=== PATIENT | female | born 1965 | race Native Hawaiian/Other Pacific Islander ===

== ENCOUNTER 2024-05-08 10:14 | Outpatient (CLI) | payer MEDICAID, SELFPAY | END 2024-05-08 10:15 | disposition home or self-care (01) | LOC: LKVREF 10:17 | PROVIDERS: Visit Provider Family Medicine | DX: Z00.00 Encounter for general adult medical examination without abnormal findings (principal); I10 Essential (primary) hypertension; E03.9 Hypothyroidism, unspecified; E87.6 Hypokalemia | CPT/HCPCS: 80053; 80061 ==

== ENCOUNTER 2024-06-05 10:23 | Outpatient (CLI) | payer MEDICAID, SELFPAY | END 2024-06-05 10:24 | disposition home or self-care (01) | PROVIDERS: PCP Family Medicine; Visit Provider Family Medicine | DX: E03.9 Hypothyroidism, unspecified (principal); D64.9 Anemia, unspecified | CPT/HCPCS: 82607; 82728; 83540; 83550; 84443 ==

== ENCOUNTER 2024-07-19 07:05 | Outpatient (CLI) | payer MEDICAID, SELFPAY ==
--- NOTE | 2024-07-19 07:15 | CRLHL7_ITS ---
For Patients: As a result of the Century Cures Act, medical imaging exams and procedure reports are released immediately into your electronic medical record. You may view this report before your referring provider. If you have questions, please contact your health care provider. CLINICAL HISTORY: prolapse uterus TECHNIQUE: 2D chung scale and color Doppler images were acquired of the pelvis using a transvaginal approach. FINDINGS: The uterus measures 4.9 x 2.7 x 2.6 cm. No uterine fibroid. The endometrium measures 1.8 millimeters. No endometrial fluid. Posterior intramural fibroid measures 1.7 x 0.9 x 1.4 cm. The left ovary is not visualized and the right ovary measures 1.7 x 1.1 x 1.2 cm. The right ovary demonstrates normal arterial and venous blood flow on color Doppler analysis. There are no suspicious fluid collections within the cul-de-sac. IMPRESSION: Intramural uterine fibroid measures 1.7 cm. Endometrium measures 1.8 millimeters. No endometrial fluid. Dictated by Gavin Anne MD @ 07/19/2024 10:23:42 AM (Electronically Signed)
== END 2024-07-19 07:06 | disposition home or self-care (01) ==
PROVIDERS: PCP Family Medicine; Visit Provider Obstetrics & Gynecology
DX: N81.4 Uterovaginal prolapse, unspecified (principal); D25.1 Intramural leiomyoma of uterus; R93.89 Abnormal findings on diagnostic imaging of other specified body structures
CPT/HCPCS: 76830; T1013

== ENCOUNTER 2024-09-25 12:45 | Outpatient (CLI) | payer MEDICAID, SELFPAY ==
[2024-09-25 13:48] VITALS: BP 132/77
--- NOTE | 2024-09-25 14:00 | W.PM.STED ---
Stress Test Note Date Date of test: 09/25/24 Providers Primary care provider: Murray Escalona Stress test physician: Bryan Booker Stress Test Note Stress test ordered: Stress Echo Indication for test: Chest pain Results discussion: Nice 59-year-old female presents here for the above test, after discussion the risks benefits and side effects she would like to proceed, cardiac stress test medical history form is reviewed. Pretest EKG shows normal sinus rhythm, ventricular rate is 82 and blood pressure 143/90. No acute ST wave changes are noted. Standard Elezaar protocol is employed over a time course of 7 minutes, she achieved a metabolic equivalent of 8.5 Mets, with a maximum heart rate of 177, which is 128% of the maximum. Test is terminated because of fulfillment of protocol, during this test she did not develop chest pain, she did develop some leg discomfort, overall fatigue. She did not have any anginal equivalents. Review of the tracing showed no evidence of ST wave changes, suggestive of ischemia, there is some mild ST wave irregularities noted, none of them diagnostic. Impression: Negative electrographic portion of stress echo, subjectively negative Follow up suggested: Await echo images, clinical correlation with these will be needed, patient left this testing facility in good condition, I retail merchandising specialist was used, to communicate with her, as her 1st language is Maltese.
== END 2024-09-25 12:46 | disposition home or self-care (01) ==
LOC: STRESS 12:46
PROVIDERS: PCP Family Medicine; Visit Provider Family Medicine
DX: R07.9 Chest pain, unspecified (principal); R01.1 Cardiac murmur, unspecified
CPT/HCPCS: 93016; 93325; 93351; T1013

== ENCOUNTER 2024-10-10 14:44 | Inpatient (IN) | payer MEDICAID, SELFPAY ==
[2024-10-10] VITALS (33 sets, daily range): BP systolic 106–145; BP diastolic 71–86; PULSE 59–75; RESP 12–20; TEMP 35.7–37; O2SAT 89–99; BMI 34.0
[2024-10-10] MEDS: SODIUM CHLORIDE 0.9 % (FLUSH) 10 ML SYRINGE IVF (06:57)
[2024-10-10] MEDS: LACTATED RINGERS 1000 ML 1,000 ML 100 ML IV (06:57)
--- NOTE | 2024-10-10 07:12 | W.PM.H&PU ---
History & Physical Update History & Physical Update H&P Reviewed and patient assessed: No changes noted
[2024-10-10 07:33] LABS: Creatinine* 0.6 mg/dL (0.5-1.5); Est. Creatinine Clearance* 118.56; Estimated Glomerular Filt Rate 104 ml/min
[2024-10-10] MEDS: CEFAZOLIN 2 GM INJ IVP (07:41)
[2024-10-10] MEDS: VASOPRESSIN 20 UNIT/ML INJ INJECTION (07:57)
[2024-10-10] MEDS: 0.9 % SODIUM CHLORIDE 50 ml INJECTION (07:57)
[2024-10-10] MEDS: LIDOCAINE 1%-EPI 1:100,000 20 ML INFILTRATI (08:31)
--- NOTE | 2024-10-10 09:24 | P.NB_ITS ---
Nerve Block Nerve Block Time Seen by Provider: 08:38 Date Seen: 10/10/24 Type of block requested by surgeon for post-operative analgesia: TAP Side: bilateral Time out performed: Yes Verification of patient name: Yes Verification of date of : Yes Site marking: site marked Name of person performing procedure: Rock Continuous monitoring Was continuous monitoring of O2 sat, B/P, quality assurance monitor body, recorded every 15 minutes?: Yes Procedure Checklist: sterile prep, needles and gloves Ultrasound guided. Images saved: Yes Medications given in 5ml increments after negative aspiration: Marcaine %: 0.25 mL: 30 Needle gauge: 20 and Exparel mL: 10 Patient tolerated procedure well: Yes Additional comments: Needle noted between internal oblique and transversus abdominus. Local spread visualized Block Charges Block Charge (with Pro Fee): TAP Bilateral Use of Ultrasound Machine for Block: Yes- US Guidance/pain block
--- NOTE | 2024-10-10 09:24 | W.ANESCHARGE ---
Anesthesia Charges Start Date/Time Anesthesia Start Date: 10/10/24 Anesthesia Start Time: 07:27 Stop Date/Time Anesthesia Stop Date: 10/10/24 Anesthesia Stop Time: 12:36
[2024-10-10] MEDS: LACTATED RINGERS 500 ML 500 ML 100 ML IV ×2 (10:30→13:09)
--- NOTE | 2024-10-10 11:12 | P.GSOP_ITS ---
Operative Note Date of procedure: 10/10/24 Pre-op diagnosis: Pelvic organ prolapse Post-op diagnosis: Same Type of Procedure: 1. Lysis of adhesion 2. Proctoscopy examination Indications: Patient was in the operating room. She had a vaginal hysterectomy converted to and open laparotomy for intra-abdominal adhesions. I was asked for an int raoperative consultation and assistance with taking down those adhesions. Please see Dr. Hernandes and Dr. Patel's notes for further discussion regarding risks, benefits and operative indication. Procedure Description: Patient was intubated and in lithotomy position. The procedure had been converted to an open abdominal hysterectomy. A Pfannenstiel incision had been made and dissection was being performed in the patient's pelvis. On examination the posterior and right lateral wall portion of the vaginal cuff was partially transected. The left fallopian tube and ovary were densely adherent to the left lateral wall. Using careful dissection with electrocautery and tying off vessels when identified we dissected free the ovary and tube from the lateral wall. The vascular supply to the ovary was identified and doubly ligated with Vicryl ties before transection. During this portion of the procedure the ureter was not identified within the operative field. Attention was then directed to the posterior vaginal cuff. Adhesions to the sigmoid colon were ligated with electrocautery, taking care not to injure the underlying sigmoid. Dr. Hernandes and Dr. Patel then proceeded to dissect free the remainder of the attachments on the uterus and transect the remainder of the vaginal cuff. The specimen was then passed off to be sent for pathology. Please see their note for description regarding repair of the vaginal cuff. The pelvis was then irrigated with saline. Hemostasis was excellent at this point in the case. The sigmoid was visualized and well away from the operative field with no areas of injury identified. I then proceeded with a proctoscopy examination. The rectum was gently inflated, there was some liquid stool but no evidence of blood within the rectal canal. Dr. Hernandes then occluded the proximal portion of the sigmoid while I inflated the colon through the proctoscope. There were no bubbles and no leak identified. I then scrubbed out of the case allow them to finish the remainder of the procedure. Findings: Adhesions of the sigmoid to the posterior vaginal cuff. Anesthesia: GETA Surgeon: Mallory Landers MD Estimated blood loss (mL): 0 Condition: stable Disposition: no change
--- NOTE | 2024-10-10 12:37 | P.GYNPRC_ITS ---
Procedure Note Date of procedure: 10/10/24 Will [facility] bill your pro fee for this procedure?: Yes Pre-op diagnosis: Pelvic organ prolapse Post-op diagnosis: Pelvic organ prolapse, extensive pelvic adhesions Procedure: Failed vaginal hysterectomy, total abdominal hysterectomy,left salpingo- oophorectomy, right salpingectomy, extensive lysis of adhesions, intraoperative consult to general surgery, anterior vaginal repair, cystoscopy Anesthesia: regional (Converted to GETA) Complications: Failed vaginal hysterectomy, need to open abdomen to complete surgery Surgeon: Ritchie Espana MD Steamship Agent: Briseyda Patel Estimated blood loss (mL): 150 IV fluids (mL): 1,500 Urine Output (mL): 175 Pathology: specimen obtained, sent to pathology (Uterus with left fallopian tube and ovary, right fallopian tube) Condition: stable Disposition: floor Findings: Normal external genitalia, anterior vaginal wall prolapse grade 3, posterior vaginal wall prolapse grade 2, multiparous cervix. No gross cervical lesions. Bimanual exam: Non contributory. Intra abdominal survey: Uterus small of about 5cm, evidence of anterior colpotomy, sigmoid epiploica adhesions to the posterior cul de sac, left pelvic side wall, left utero sacral ligament. Left fallopian tube and ovary adhered to the left round ligament and posterior left fundus uterus. Right fallopian tube adhesions to the right round/broad ligament. Right ovary not definitively visualized, but believed to be adherent to the right round ligament and fallopian tube. Cystoscopy: No foreign objects, intact mucosa, bilateral ureteral jet streams seen. Appendix normal. Procedure Description: The patient was seen at the preop area. Informed consent was reviewed and signed. The patient was taken to the OR with IV fluid running and pneumatic compression stockings were applied to the lower extremities. Spinal anesthesia was obtained without difficulty. The patient was placed in the dorsal lithotomy position with Desmond type stirrups. Buttock was positioned slightly over the edge the table. The patient was prepped and draped in normal sterile fashion. Examination under anesthesia revealed the findings as above. Landa catheter was inserted in the bladder was emptied. A weighted speculum was placed into the vagina. The anterior and posterior lip of the cervix grasped with a double Brook forceps. With outward traction applied to the cervix, diluted Vasopressin was injected circumferentially into the cervicovaginal junction for hydrodissection purposes. Afterwards a circumferential incision was made with the scalpel at the cervical vaginal junction. Incision was carried down to the para cervical fascia, allowing the cervix to separate from the vagina mucosa. Minimal bleeding encountered. Separation of the anterior vaginal mucosa from uterus performed bluntly with moist gauze and performed until peritoneal reflection identified, this was picked up and entered sharply with England scissors. A right angle retractor was inserted into the vesicouterine space. Attention was then placed to the posterior vagina, where blunt dissection also utilized until identification of the posterior peritoneum, this was grasped with pickups and entered sharply with England scissors with the tip pointing to the uterus. A thin peritoneal layer was still palpated and complete access to the posterior cul de sac was unable to be obtained. Palpation of the fundus through the anterior colpotomy was highly suspicious for posterior cul de sac adhesions and decision was made to culminate attempts to vaginal approach and proceed with abdominal hysterectomy. Anesthesia was able to achieve GETA w/o difficulty. Entire set up was changed, and patient was re prepped vaginally and abdominally for abdominal approach.A new Landa catheter was placed. A procto sizer was placed vaginally to help identify previous attempts at posterior colpotomy. A Pfannenstiel skin incision was made with a scalpel. This incision was carried down to the underlying layer of fascia with the scalpel and Bovie. The fascia was incised in the midline and the incision extended laterally. The superior and inferior aspects of the fascial incision were grasped with Aurelio clamps and the underlying rectus muscles dissected off sharply. The rectus muscles were in the midline. The underlying peritoneum was identified and entered bluntly. The peritoneal incision was extended superiorly and inferiorly with good visualization of the bladder. The patient was placed in some mild Trendelenburg positioning. The bowels were packed cephalad using a large moistened laparotomy sponge. The Ken O retractor was placed in the incision. This provided excellent visualization of the pelvis. The pelvis was inspected with the findings noted above. Natan clamps were placed at the cornua bilaterally for traction. Bilateral round ligaments easily identified. Starting on the left side the left roud ligament was grasped with [place] and suture ligated with 0 Vicryl. The anterior leaf of the broad ligament was opened to the midline to meet the anterior colpotomy. Posterior leaf of the left round ligament with adhesions to a structure highly suspected to be the left fallopian tube and ovary. Multiple sigmoid epiploica adhesions noted to the left infundibulopelvic ligament, careful blunt and sharp dissection completed but assistance from general surgery was required eventually, intraoperative consult made-please see Dr. Landers's note for complete details. In the meantime attention was turned to the right side and the right roud ligament was grasped with Ambrosio and suture ligated with 0 Vicryl. The anterior leaf of the broad ligament was opened to the midline to meet the anterior colpotomy. Posterior leaf of the left round ligament with adhesions to the left fallopian tube and possibly right ovary. Adhesions were mobilized with blunt and sharp dissection until identification of the fimbrial end of the right fallopian tube. The right ovarian ligament was then isolated, clamped across with 2 Lety clamps, transected, and doubly suture ligated with 0 Vicryl. Hemostasis was observed. The uterine vessels were skeletonized on the right side. The vessels were clamped across with a Lety and a straight clamp, transected, and suture ligated. Excellent hemostasis was obtained. Attention was then again placed of the left side and with careful dissection the left IP ligament was isolated, clamped, cut and suture ligated with 0 Vicryl. Hemostasis secured.The left ovarian ligament was clamped with 2 Lety clamps, transected, and doubly suture ligated with 0 Vicryl. Hemostasis was visualized. The left uterine vessels were skeletonized and then clamped across with Lety clamps, transected, and suture ligated. Excellent hemostasis was obtained. The remaining cardinal and uterosacral ligament attachments on both sides were clamped with straight Lety clamps adjacent to the lower uterine segment and cervix, transected and suture ligated with 0 Vicryl. Excellent hemostasis was obtained. Two Lety clamps were placed across the vaginal cuff angles. The uterus with attached cervix was then transected and passed off the field. The vaginal cuff angles were fixed with Lety stitches of 0 Vicryl. The intervening vaginal cuff was closed with [id number] sutures of 0 Vicryl. The right fallopian tube was elevated with [place] clamps. Lety clamps were placed across the tubal attachments, which were then transected and suture ligated with 0 Vicryl. Warm saline irrigated in the pelvis to evaluate for hemostasis, and this was completed twice. Small bleeding vessels were isolated with DeBakey clamps and cauterized for hemostasis. Hemostasis secured. General surgery then completed proctoscopy, please see intraoperative consult notes for complete details. All laparotomy sponges and instruments were then removed. Peritoneum was approximated with Vicryl 3-0 in a continuous fashion. The subfascial tissues were carefully inspected and hemostasis assured. The fascia was reapproximated in a running fashion with a looped 0 PDS suture. The subcutaneous tissues were copiously irrigated and hemostasis assured. The subcutaneous adipose layer was reapproximated with interrupted sutures of 3-0 plain gut. The skin was closed in a subcuticular fashion with 4-0 Monocryl. LiquiBand applied. Attention was then placed to the anterior vagina. Allis camps were placed along the midline of the anterior vaginal wall and dilute Vasopressin solution injected along the anterior vaginal wall. A vertical midline incision was then made and the vaginal epithelium was dissected from the underlying tissue using Metzenbaum scissors. Plication of the underlying vaginal muscularis and adventitia was performed using a running Vicryl 2-0 suture. Redundant vaginal mucosa was trimmed, and the vaginal incision was closed with Vicryl 2-0. Cystoscopy was then completed revealing no damage to the bladder mucosa and bilateral ureteral jets. The patient was given sodium fluorescein for better visualization of ureteral jets in cystoscopies to follow. The cystoscope was removed. The Landa catheter was replaced. The patient tolerated the procedure well. Sponge, lap, needle, instrument counts were reported as correct x2. The patient was taken to recovery room awake and in stable condition. She received 2 g of IV Ancef preoperatively and a second dose was given at the 4 hour marty. 1g of IV TXA also given intraoperatively due to concerns for multiple small bleeding vessels. The uterus was weighed at the conclusion of the procedure, weight was 41g.
--- NOTE | 2024-10-10 12:51 | W.ANESCHARGE ---
Anesthesia Charges Start Date/Time Anesthesia Start Date: 10/10/24 Anesthesia Start Time: 07:27 Stop Date/Time Anesthesia Stop Date: 10/10/24 Anesthesia Stop Time: 12:36
[2024-10-10] MEDS: HYDROmorphone 0.5 mg/0.5 ml inj IVP (12:59)
[2024-10-10] MEDS: LACTATED RINGERS 1000 ML 1,000 ML 125 ML IV ×2 (13:55→20:58)
--- NOTE | 2024-10-10 15:46 | P.IMCN_ITS ---
Date of Consult Consult date: 10/10/24 Primary Care Provider: Murray Escalona MD Consult Narrative Narrative: Sharon Lawson is a 59 year old female who underwent an elective gynecologic procedure today by Dr. Morin. The planned total vaginal hysterectomy converted to open. I do not have further details at this time about the procedure. I have been asked to consult on this patient who has a history of hypertension, hypothyroidism, and negative stress echocardiogram done for chest pain. I spoke with Sharon via maintainer central office. She tells me that she is feeling well and has no pain at present. She and I discussed her medications and she confirmed which she is taking and when. She expressed some thirst for which I gave her some ice chips that were at the bedside. She had no other concerns or complaints. Review of Systems Status of ROS: Reports: 6 or more systems reviewed and unremarkable except as noted in History and below [facility] Medical History (Updated 10/10/24 @ 16:07 by Ninfa Valera MD) History of diverticulitis ?Z87.19 - Personal history of other diseases of the digestive system (ICD-10) Hx of ovarian cyst ?Z87.42 - Personal history of other diseases of the female genital tract (ICD-10) Eczema ?L30.9 - Dermatitis, unspecified (ICD-10) Chest pain ?R07.9 - Chest pain, unspecified (ICD-10) Lichen sclerosus et atrophicus of the vulva ?N90.4 - Leukoplakia of vulva (ICD-10) Murmur, cardiac ?R01.1 - Cardiac murmur, unspecified (ICD-10) Seasonal allergies ?J30.2 - Other seasonal allergic rhinitis (ICD-10) GERD (gastroesophageal reflux disease) ?K21.9 - Gastro-esophageal reflux disease without esophagitis (ICD-10) Breast cancer in female ?C50.919 - Malignant neoplasm of unspecified site of unspecified female breast (ICD-10) HTN (hypertension) ?I10 - Essential (primary) hypertension (ICD-10) Hypothyroidism ?E03.9 - Hypothyroidism, unspecified (ICD-10) Surgical History (Updated 10/10/24 @ 16:01 by Ninfa Valera MD) History of partial colectomy ?Z90.49 - Acquired absence of other specified parts of digestive tract (ICD- 10) S/P removal of left ovary ?Z90.721 - Acquired absence of ovaries, unilateral (ICD-10) History of cholecystectomy ?Z90.49 - Acquired absence of other specified parts of digestive tract (ICD- 10) Cyst of left breast ?N60.02 - Solitary cyst of left breast (ICD-10) History of removal of ovarian cyst ?Z98.890 - Other specified postprocedural states (ICD-10) ?Z87.42 - Personal history of other diseases of the female genital tract (ICD-10) Family History (Updated 05/29/24 @ 13:41 by Pat Page) Father Myocardial infarction Uncle Prostate cancer Mother Hepatitis Aunt Lung cancer, Onset Age: 32 Social History (Updated 10/10/24 @ 16:02 by Ninfa Valera MD) Narrative: Homemaker. Has a daughter and a grandchild. She denies EtOH or smoking. What is your current living situation?: I presently have a place to live In the past 12 months, utilities in danger of being shut off: no In the past 12 mos, have been you worried that your food would run out before you had money to buy more?: never true In the past 12 mos, the food you bought just didn't last and you didn't have money to buy more?: never true Smoking Status: Never smoker How often do you have a drink containing alcohol: never AUDIT-C Alcohol total score: 0 Non-prescribed substance use: denies use Caffeine: Yes (1 c/day coffee) How often does anyone, including family, friends and others, physically hurt you : never How often does anyone, including family, friends and others, insult or talk down to you: never How often does anyone, including family, friends and others, threaten you with harm: never How often does anyone, including family, friends and others, scream or curse at you: never service: No Meds Home Medications and Allergies Home Medications ?Medication ?Instructions ?Recorded ?Confirmed ?Type amlodipine 10 mg tablet 10 mg PO HS 10/10/24 10/10/24 History cetirizine 10 mg tablet (Zyrtec) 10 mg PO HS PRN allergy symptoms 10/10/24 10/10/24 History fluticasone furoate 27.5 2 spray intranasal DAILY 10/10/24 10/10/24 History mcg/actuation nasal spray,suspension (Flonase Sensimist) hydrochlorothiazide 25 mg tablet 25 mg PO HS 10/10/24 10/10/24 History montelukast 10 mg tablet 10 mg PO HS 10/10/24 10/10/24 History (Singulair) omeprazole 20 mg capsule,delayed 20 mg PO HS 10/10/24 10/10/24 History release triamcinolone acetonide 0.1 % 1 applic topical BID PRN 10/10/24 10/10/24 History topical cream Allergies Allergy/AdvReac Type Severity Reaction Status Date / Time No Known Drug Allergies Allergy Verified 10/10/24 06:58 Exam Narrative: Exam Narrative: General: [No acute distress.] [Awake alert oriented x3.] HEENT: [Normocephalic atraumatic], [pupils equally round and reactive to light and accommodation]. Oropharynx [clear]. Mucous membranes are [moist]. Poor dentition. [No cervical lymphadenopathy, thyromegaly or carotid bruits]. No JVD. Cardiovascular: [Regular rate and rhythm]. [No murmurs, gallops, or rubs]. Chest: No increased work of breathing. [Clear to auscultation bilaterally. No crackles or wheezes]. Abdomen: Bowel sounds hypoactive. Postop abdomen with anterior suprapubic incision that is clean, dry, intact and without erythema or induration. [No hepatosplenomegaly or masses]. Extremities: [No] edema, [no cyanosis or clubbing]. Skin: [No jaundice,] [no pallor,] [no rashes on visible skin]. Const: Vital Signs, click to edit/add: Vital Signs - 24 hr 10/10/24 06:53 10/10/24 12:33 10/10/24 12:35 Temperature 97.3 F L 98.6 F Pulse Rate 75 75 74 Respiratory Rate 16 16 16 Blood Pressure 145/86 H 121/78 115/74 Pulse Oximetry 95 97 97 Oxygen Delivery Me thod Room Air Nasal Cannula Nasal Cannula Oxygen Flow Rate 2 2 10/10/24 12:40 10/10/24 12:45 10/10/24 12:50 Temperature Pulse Rate 71 70 70 Respiratory Rate 16 16 16 Blood Pressure 121/74 112/75 108/72 Pulse Oximetry 98 98 98 Oxygen Delivery Me thod Nasal Cannula Nasal Cannula Nasal Cannula Oxygen Flow Rate 2 2 2 10/10/24 12:55 10/10/24 13:01 10/10/24 13:05 Temperature 97.6 F Pulse Rate 67 73 71 Respiratory Rate 16 16 16 Blood Pressure 112/73 106/71 112/75 Pulse Oximetry 98 97 89 Oxygen Delivery Me thod Nasal Cannula Nasal Cannula Room Air Oxygen Flow Rate 2 2 0 10/10/24 13:10 10/10/24 13:15 10/10/24 13:27 Temperature 96.3 F L Pulse Rate 64 64 67 Respiratory Rate 16 16 12 Blood Pressure 114/75 115/77 113/73 Pulse Oximetry 98 98 98 Oxygen Delivery Me thod Nasal Cannula Nasal Cannula Nasal Cannula Oxygen Flow Rate 2 2 2 10/10/24 13:45 10/10/24 14:30 Temperature Pulse Rate Respiratory Rate 12 14 Blood Pressure Pulse Oximetry Oxygen Delivery Me thod Oxygen Flow Rate Labs Labs: Short CBC 10/10/24 Range/Units 07:03 Hgb 12.0 (12.0-16.0) gm/dL BMP 10/10/24 07:03 Creatinine 0.6 Assessment and Plan Assessment and plan (1) Prolapse of female pelvic organs: Problem comment: - underwent gynecologic procedure today, total open hysterectomy - routine cares Status: Chronic (2) Abnormal uterine bleeding: Status: Chronic (3) Hypothyroidism: Problem comment: - Continue levothyroxine Status: Chronic (4) HTN (hypertension): Problem comment: - continue hydrochlorothiazide with hold parameters, blood pressure is currently 110/72. Will hold amlodipine to allow for a slightly higher blood pressure overnight. Status: Chronic (5) GERD (gastroesophageal reflux disease): Problem comment: - continue omeprazole Status: Chronic Plan - appreciate the consult - VTE prophylaxis with SCDs and ambulation.
[2024-10-10 17:02] LABS: Hemoglobin* 11.3 gm/dL (12.0-16.0)
[2024-10-10 17:27] LABS: Creatinine* 0.6 mg/dL (0.5-1.5); Est. Creatinine Clearance* 118.56; Estimated Glomerular Filt Rate 104 ml/min
--- NOTE | 2024-10-10 17:47 | PC.NURSE ---
Shift Summary: Patient pleasant and cooperative. has not yet gotten out of bed. Landa patent with bright yellow urine due to dye. Vitals stable and WNL. Abdominal incision open to air, appears clean and dry. Patient denies pain. Had oatmeal for dinner, denies any nausea. Patient uses bilingual interpreter for medical updates/instructions, able to understand some lao and answers appropriately, family at bedside and assists as well for verbalizing needs and meal orders. Denies nausea. Maintaining o2 sats >90% on RA, RR 12-16.
[2024-10-10] MEDS: KETOROLAC 30 MG/ML inj IVP (18:16)
[2024-10-10] MEDS: MONTELUKAST 10 MG TABLET PO (20:56)
[2024-10-10] MEDS: OMEPRAZOLE 20 MG CAPSULE DR PO (20:57)
[2024-10-11] VITALS (12 sets, daily range): BP systolic 99–128; BP diastolic 64–77; PULSE 73–81; RESP 14–18; TEMP 36.4–37.2; O2SAT 95–98
[2024-10-11] MEDS: KETOROLAC 30 MG/ML inj IVP ×3 (00:32→13:33)
--- NOTE | 2024-10-11 07:18 | PC.NURSE ---
Pt alert, oriented and vitally stable. Pain rated 0-2/10 throughout shift, tolerated with scheduled medications. Landa patent and draining effectively. Pt remained in bed throughout shift. Call light within reach.
[2024-10-11 07:28] LABS: Hemoglobin* 9.8 gm/dL (12.0-16.0)
[2024-10-11 07:44] LABS: Creatinine* 0.6 mg/dL (0.5-1.5); Est. Creatinine Clearance* 118.56; Estimated Glomerular Filt Rate 104 ml/min
[2024-10-11] MEDS: hydroCHLOROthiazide 25 MG TABLET PO (08:46)
[2024-10-11] MEDS: AMLODIPINE 10 MG TABLET PO (08:46)
[2024-10-11] MEDS: LEVOTHYROXINE 125 MCG TABLET PO (08:46)
[2024-10-11] MEDS: OMEPRAZOLE 20 MG CAPSULE DR PO (08:46)
[2024-10-11] MEDS: ACETAMINOPHEN 325 MG TABLET 1000 MG PO (08:54)
--- NOTE | 2024-10-11 10:21 | PM.IMPN1 ---
Progress Note: A&P Assessment and plan (1) Prolapse of female pelvic organs: Problem details: - underwent gynecologic procedure today, total open hysterectomy - routine cares Status: Chronic (2) Hypothyroidism: Problem details: - Continue levothyroxine Status: Chronic (3) HTN (hypertension): Problem details: - slightly lower postoperative numbers, asymptomatic - continue HCTZ with hold parameters, blood pressure is currently 110/72 - takes amlodipine at at bedtime restarting 10/11 with hold parameters Status: Chronic (4) GERD (gastroesophageal reflux disease): Problem details: - continue omeprazole Status: Chronic Plan - continue postoperative management per industrial technology education teacher team - continue home medications for above mentioned comorbidities Subjective Date Seen: 10/11/24 Interval history: Sharon was admitted to the hospital yesterday for a hysterectomy 2/2 pelvic organ prolapse. Formal postoperative diagnosis per Dr. Espana: Failed vaginal hysterectomy, total abdominal hysterectomy,left salpingo-oophorectomy, right salpingectomy, extensive lysis of adhesions, intraoperative consult to general surgery, anterior vaginal repair, cystoscopy. Dr. Landers of General Surgery was consulted intraoperatively for lysis of adhesions and proctoscopy. No operative or anesthetic complications noted. Hospitalist team consulted given comorbidities of Essential HTN, GERD, Hypothyroidism. Takes HCTZ in the morning, Amlodipine at night. Held Amlodipine overnight given lower BPs, has holding parameters on HCTZ. SBP has been 103-128 postoperatively without dizziness or lightheadedness. No chest pain or dyspnea. Noted to have intermittent chest pain in August with reassuring stress test at that time. Dr. Escalona is PCP. No concerns for hospitalist team this morning. Exam Narrative: Exam Narrative: GEN: Alert and oriented, nontoxic and sitting in bed HEENT: EOMIs bilaterally, no scleral icterus, mild conjunctival pallor CV: RRR, + systolic murmur without radiation or concerning features R: LCTA bilaterally without concerning wheezing Ab: No concerning tenderness, incision not formally examined Ext: wwp, no concerning edema Skin: No concerning skin lesions or rashes on exposed skin Neuro: Nonfocal Psych: Appropriate Const: Vital Signs, click to edit/add: Vital Signs - 24 hr 10/10/24 12:33 10/10/24 12:35 10/10/24 12:40 Temperature 98.6 F Pulse Rate 75 74 71 Pulse Rate [Pulse Oximeter] Respiratory Rate 16 16 16 Blood Pressure 121/78 115/74 121/74 Blood Pressure [Ri ght Arm] Pulse Oximetry 97 97 98 Oxygen Delivery Me thod Nasal Cannula Nasal Cannula Nasal Cannula Oxygen Flow Rate 2 2 2 10/10/24 12:45 10/10/24 12:50 10/10/24 12:55 Temperature Pulse Rate 70 70 67 Pulse Rate [Pulse Oximeter] Respiratory Rate 16 16 16 Blood Pressure 112/75 108/72 112/73 Blood Pressure [Ri ght Arm] Pulse Oximetry 98 98 98 Oxygen Delivery Me thod Nasal Cannula Nasal Cannula Nasal Cannula Oxygen Flow Rate 2 2 2 10/10/24 13:01 10/10/24 13:05 10/10/24 13:10 Temperature 97.6 F Pulse Rate 73 71 64 Pulse Rate [Pulse Oximeter] Respiratory Rate 16 16 16 Blood Pressure 106/71 112/75 114/75 Blood Pressure [Ri ght Arm] Pulse Oximetry 97 89 98 Oxygen Delivery Me thod Nasal Cannula Room Air Nasal Cannula Oxygen Flow Rate 2 0 2 10/10/24 13:15 10/10/24 13:27 10/10/24 13:30 Temperature 96.3 F L 96.3 F L Pulse Rate 64 67 64 Pulse Rate [Pulse Oximeter] Respiratory Rate 16 12 12 Blood Pressure 115/77 113/73 112/73 Blood Pressure [Ri ght Arm] Pulse Oximetry 98 98 98 Oxygen Delivery Me thod Nasal Cannula Nasal Cannula Nasal Cannula Oxygen Flow Rate 2 2 2 10/10/24 13:45 10/10/24 13:45 10/10/24 14:00 Temperature 96.5 F L 96.5 F L Pulse Rate 63 64 Pulse Rate [Pulse Oximeter] Respiratory Rate 12 12 12 Blood Pressure 114/72 115/72 Blood Pressure [Ri ght Arm] Pulse Oximetry 96 98 Oxygen Delivery Me thod Nasal Cannula Nasal Cannula Oxygen Flow Rate 1 1 10/10/24 14:15 10/10/24 14:30 10/10/24 14:45 Temperature 96.2 F L 96.2 F L Pulse Rate 60 59 L Pulse Rate [Pulse Oximeter] Respiratory Rate 14 14 14 Blood Pressure 111/76 117/71 Blood Pressure [Ri ght Arm] Pulse Oximetry 98 98 Oxygen Delivery Me thod Nasal Cannula Nasal Cannula Oxygen Flow Rate 0.5 0.5 10/10/24 15:00 10/10/24 15:15 10/10/24 15:30 Temperature 96.2 F L Pulse Rate 66 Pulse Rate [Pulse Oximeter] Respiratory Rate 14 14 14 Blood Pressure 110/72 Blood Pressure [Ri ght Arm] Pulse Oximetry 98 Oxygen Delivery Me thod Room Air Oxygen Flow Rate 10/10/24 16:15 10/10/24 16:30 10/10/24 17:00 Temperature 96.7 F L 96.5 F L Pulse Rate 60 60 Pulse Rate [Pulse Oximeter] Respiratory Rate 16 16 14 Blood Pressure 128/80 122/80 Blood Pressure [Ri ght Arm] Pulse Oximetry 99 96 Oxygen Delivery Me thod Room Air Room Air Oxygen Flow Rate 10/10/24 17:30 10/10/24 18:22 10/10/24 18:24 Temperature 96.6 F L Pulse Rate 65 Pulse Rate [Pulse Oximeter] Respiratory Rate 14 14 14 Blood Pressure 122/76 Blood Pressure [Ri ght Arm] Pulse Oximetry 99 Oxygen Delivery Me thod Room Air Oxygen Flow Rate 10/10/24 19:00 10/10/24 19:30 10/10/24 20:30 Temperature 97.5 F L Pulse Rate Pulse Rate [Pulse Oximeter] 68 Respiratory Rate 16 16 20 Blood Pressure Blood Pressure [Ri ght Arm] 123/80 Pulse Oximetry 98 Oxygen Delivery Me thod Room Air Oxygen Flow Rate 10/10/24 22:30 10/10/24 23:00 10/10/24 23:00 Temperature 98.1 F Pulse Rate Pulse Rate [Pulse Oximeter] 68 68 Respiratory Rate 18 18 18 Blood Pressure Blood Pressure [Ri ght Arm] 111/71 Pulse Oximetry 97 Oxygen Delivery Me thod Room Air Oxygen Flow Rate 10/10/24 23:30 10/11/24 00:30 10/11/24 01:30 Temperature Pulse Rate Pulse Rate [Pulse Oximeter] Respiratory Rate 18 18 18 Blood Pressure Blood Pressure [Ri ght Arm] Pulse Oximetry Oxygen Delivery Me thod Oxygen Flow Rate 10/11/24 02:30 10/11/24 03:00 10/11/24 03:30 Temperature 98.9 F Pulse Rate Pulse Rate [Pulse Oximeter] 79 Respiratory Rate 16 18 18 Blood Pressure Blood Pressure [Ri ght Arm] 103/68 Pulse Oximetry 96 Oxygen Delivery Me thod Room Air Oxygen Flow Rate 10/11/24 04:30 10/11/24 05:30 10/11/24 06:13 Temperature Pulse Rate Pulse Rate [Pulse Oximeter] Respiratory Rate 18 16 18 Blood Pressure Blood Pressure [[facility] Arm] Pulse Oximetry Oxygen Delivery Me thod Oxygen Flow Rate 10/11/24 07:20 10/11/24 07:20 10/11/24 08:40 Temperature 97.7 F Pulse Rate Pulse Rate [Pulse Oximeter] 73 Respiratory Rate 16 16 Blood Pressure Blood Pressure [[facility] Arm] 113/66 128/77 Pulse Oximetry 96 Oxygen Delivery Me thod Room Air Oxygen Flow Rate Labs Labs: Laboratory Results - last 24 hr 10/10/24 10/11/24 16:51 06:05 Hgb 11.3 L 9.8 L Creatinine 0.6 0.6 Estimated Creat Clear 118.56 118.56 Estimated GFR 104 104
--- NOTE | 2024-10-11 10:34 | P.GSPN_ITS ---
Subjective Subjective Date Seen: 10/11/24 Interval history: Patient Was interviewed with a motorcycle riding instructor. She states that she is doing well this morning. She denies any abdominal pain. She had some breakfast, and reports a good appetite. Denies any nausea. Has not yet been passing gas, but has been burping. Exam Narrative: Exam Narrative: General: Alert and oriented, no acute distress Respiratory: Equal breath rise bilaterally, maintained on room air CV: Well perfused Abdomen: Soft, nontender nondistended. Lower Pfannenstiel incision with Dermabond in place clean/dry/intact. No concern for infection. Const: Vital Signs, click to edit/add: Vital Signs - 24 hr 10/10/24 12:33 10/10/24 12:35 10/10/24 12:40 Temperature 98.6 F Pulse Rate 75 74 71 Pulse Rate [Pulse Oximeter] Respiratory Rate 16 16 16 Blood Pressure 121/78 115/74 121/74 Blood Pressure [Ri ght Arm] Pulse Oximetry 97 97 98 Oxygen Delivery Me thod Nasal Cannula Nasal Cannula Nasal Cannula Oxygen Flow Rate 2 2 2 10/10/24 12:45 10/10/24 12:50 10/10/24 12:55 Temperature Pulse Rate 70 70 67 Pulse Rate [Pulse Oximeter] Respiratory Rate 16 16 16 Blood Pressure 112/75 108/72 112/73 Blood Pressure [Ri ght Arm] Pulse Oximetry 98 98 98 Oxygen Delivery Me thod Nasal Cannula Nasal Cannula Nasal Cannula Oxygen Flow Rate 2 2 2 10/10/24 13:01 10/10/24 13:05 10/10/24 13:10 Temperature 97.6 F Pulse Rate 73 71 64 Pulse Rate [Pulse Oximeter] Respiratory Rate 16 16 16 Blood Pressure 106/71 112/75 114/75 Blood Pressure [Ri ght Arm] Pulse Oximetry 97 89 98 Oxygen Delivery Me thod Nasal Cannula Room Air Nasal Cannula Oxygen Flow Rate 2 0 2 10/10/24 13:15 10/10/24 13:27 10/10/24 13:30 Temperature 96.3 F L 96.3 F L Pulse Rate 64 67 64 Pulse Rate [Pulse Oximeter] Respiratory Rate 16 12 12 Blood Pressure 115/77 113/73 112/73 Blood Pressure [Ri ght Arm] Pulse Oximetry 98 98 98 Oxygen Delivery Me thod Nasal Cannula Nasal Cannula Nasal Cannula Oxygen Flow Rate 2 2 2 10/10/24 13:45 10/10/24 13:45 10/10/24 14:00 Temperature 96.5 F L 96.5 F L Pulse Rate 63 64 Pulse Rate [Pulse Oximeter] Respiratory Rate 12 12 12 Blood Pressure 114/72 115/72 Blood Pressure [Ri ght Arm] Pulse Oximetry 96 98 Oxygen Delivery Me thod Nasal Cannula Nasal Cannula Oxygen Flow Rate 1 1 10/10/24 14:15 10/10/24 14:30 10/10/24 14:45 Temperature 96.2 F L 96.2 F L Pulse Rate 60 59 L Pulse Rate [Pulse Oximeter] Respiratory Rate 14 14 14 Blood Pressure 111/76 117/71 Blood Pressure [Ri ght Arm] Pulse Oximetry 98 98 Oxygen Delivery Me thod Nasal Cannula Nasal Cannula Oxygen Flow Rate 0.5 0.5 10/10/24 15:00 10/10/24 15:15 10/10/24 15:30 Temperature 96.2 F L Pulse Rate 66 Pulse Rate [Pulse Oximeter] Respiratory Rate 14 14 14 Blood Pressure 110/72 Blood Pressure [Ri ght Arm] Pulse Oximetry 98 Oxygen Delivery Me thod Room Air Oxygen Flow Rate 10/10/24 16:15 10/10/24 16:30 10/10/24 17:00 Temperature 96.7 F L 96.5 F L Pulse Rate 60 60 Pulse Rate [Pulse Oximeter] Respiratory Rate 16 16 14 Blood Pressure 128/80 122/80 Blood Pressure [Ri ght Arm] Pulse Oximetry 99 96 Oxygen Delivery Me thod Room Air Room Air Oxygen Flow Rate 10/10/24 17:30 10/10/24 18:22 10/10/24 18:24 Temperature 96.6 F L Pulse Rate 65 Pulse Rate [Pulse Oximeter] Respiratory Rate 14 14 14 Blood Pressure 122/76 Blood Pressure [Ri ght Arm] Pulse Oximetry 99 Oxygen Delivery Me thod Room Air Oxygen Flow Rate 10/10/24 19:00 10/10/24 19:30 10/10/24 20:30 Temperature 97.5 F L Pulse Rate Pulse Rate [Pulse Oximeter] 68 Respiratory Rate 16 16 20 Blood Pressure Blood Pressure [Ri ght Arm] 123/80 Pulse Oximetry 98 Oxygen Delivery Me thod Room Air Oxygen Flow Rate 10/10/24 22:30 10/10/24 23:00 10/10/24 23:00 Temperature 98.1 F Pulse Rate Pulse Rate [Pulse Oximeter] 68 68 Respiratory Rate 18 18 18 Blood Pressure Blood Pressure [Ri ght Arm] 111/71 Pulse Oximetry 97 Oxygen Delivery Me thod Room Air Oxygen Flow Rate 10/10/24 23:30 10/11/24 00:30 10/11/24 01:30 Temperature Pulse Rate Pulse Rate [Pulse Oximeter] Respiratory Rate 18 18 18 Blood Pressure Blood Pressure [Ri ght Arm] Pulse Oximetry Oxygen Delivery Me thod Oxygen Flow Rate 10/11/24 02:30 10/11/24 03:00 10/11/24 03:30 Temperature 98.9 F Pulse Rate Pulse Rate [Pulse Oximeter] 79 Respiratory Rate 16 18 18 Blood Pressure Blood Pressure [Ri ght Arm] 103/68 Pulse Oximetry 96 Oxygen Delivery Me thod Room Air Oxygen Flow Rate 10/11/24 04:30 10/11/24 05:30 10/11/24 06:13 Temperature Pulse Rate Pulse Rate [Pulse Oximeter] Respiratory Rate 18 16 18 Blood Pressure Blood Pressure [Ri ght Arm] Pulse Oximetry Oxygen Delivery Me thod Oxygen Flow Rate 10/11/24 07:20 10/11/24 07:20 10/11/24 08:40 Temperature 97.7 F Pulse Rate Pulse Rate [Pulse Oximeter] 73 Respiratory Rate 16 16 Blood Pressure Blood Pressure [Ri ght Arm] 113/66 128/77 Pulse Oximetry 96 Oxygen Delivery Me thod Room Air Oxygen Flow Rate Labs/Imaging Labs Labs: Hemoglobin 9.8 Imaging Imaging: No new imaging Progress Note:A&P Assessment and plan (1) S/P abdominal hysterectomy: Status: Acute Assessment and Plan: Patient is postop day 1 vaginal converted to abdominal hysterectomy. An intraoperative consultation for general surgery was requested due to adhesions of the uterus to the underlying sigmoid colon. A lysis of adhesions was performed. On-table proctoscopy examination demonstrated no blood within the rectal canal and negative leak test. Vital signs stable overnight, abdomen benign. Postoperative hemoglobin of 9.8 likely represents intraoperative blood loss, low concern for ongoing bleeding. Okay to slowly advance diet. Recommend stool softeners. Patient was encouraged to ambulate the halls. All other cares per hospitalist and gynecology team. Surgery to sign off, please call with any questions or concerns.
[2024-10-11] MEDS: OXYCODONE 5 MG TABLET PO (10:57)
[2024-10-11] MEDS: SIMETHICONE 80 MG TAB.CHEW 160 MG PO (15:39)
--- NOTE | 2024-10-11 15:56 | PM.GYNDS1 ---
DS: Providers Provider Time Seen by Provider: 15:56 Date Seen: 10/11/24 Date of admission: 10/10/24 14:44 Primary care physician: Murray Escalona MD Admitting Clinician: Shelley Espana MD Consults: 10/10/24 12:28 Consult to Physician [CONS] Routine Comment: Consulting Provider: Hospitalists Has provider been notified: No Attending Physician on discharge: Shelley Espana MD Date of Discharge: 10/11/24 DS: Diagnosis Discharge Diagnosis (1) S/P abdominal hysterectomy: Status: Acute FURNITURE LUMBER PRODUCTION WORKER-Discharge Summary Hospital Course Hospital Course Narrative: Patient is a 59 year old admitted on 10/10/2024 for elective surgery. Indication for surgery: Pelvic organ prolapse. Intraoperative findings were notable for anterior vaginal wall prolapse grade 3, extensive pelvic adhesions, small uterus, grossly normal fallopian tubes and small ovaries. Surgery complicated by failed vaginal hysterectomy and needing to proceed with abdominal approach. Today, on postoperative day 1, she reports the pain is well controlled. She has been able to ambulate Without difficulty. She is tolerating regular diet. She is passing flatus. Landa catheter has been removed, and she is voiding without difficulty. Hemoglobin on post op day one 9.8mg/dL, from 11.3mg/dL. Patient has been able to ambulate w/o dizziness, SOB or lightheadedness. Vital signs have remained normal as well as abdominal exam. Pain is well controlled. Vitals have been stable. She has remained afebrile. Patient desires discharge home today. Time Spent with Patient Time attestation: Total time spent providing and/or coordinating discharge services: Time spent: Less than 30 minutes FURNITURE LUMBER PRODUCTION WORKER - Exam Physical Exam: Vital signs: Temp Pulse Resp BP Pulse Ox O2 Del Method O2 Flow Rate 97.6 F 81 14 99/64 96 Room Air 0.5 10/11/24 15:00 10/11/24 15:00 10/11/24 15:00 10/11/24 15:00 10/11/24 15:00 10/11/24 15:00 10/10/24 14:45 Narrative: VITAL SIGNS: As noted above. GENERAL APPEARANCE: Alert, cooperative female in no acute distress. MOOD & AFFECT: Normal. HEART: Regular rate and rhythm without murmurs. LUNGS: Lungs are clear to auscultation bilaterally. No crackles, wheezes, or rhonchi. ABDOMEN: Positive bowel sounds in all abdominal quadrants. Soft, minimal distension and minimal discomfort with deep palpation of lower abdominal quadrants. No guarding, no rebound. : Minimal spotting. EXTREMITIES: Nonedematous. Well perfused. Nontender. NEURO: Intact. FURNITURE LUMBER PRODUCTION WORKER - DS: Data Data Completed and Pending Labs on day of discharge: Labs from last 24 hours 10/11/24 10/10/24 06:05 16:51 Hgb 9.8 L 11.3 L Creatinine 0.6 0.6 Estimated Creat Clear 118.56 118.56 Estimated GFR 104 104 Procedures Procedures: Procedures Operation Date: 10/10/24 07:15 Actual Procedure Side Surgeon p Failed Vaginal Hysterectomy, CONVERTED TO total abdominal hysterectomy, RIGHT Salpingectomy, left salpingo-oophorectomy, Anterior vaginal Repairs, extensive lysis of adhesions, Cystoscopy, Proctoscopy Shelley Espana MD Discharge Plan Discharge Disposition: Home, Self-Care Date of Admission: 10/10/24 14:44 Attending Physician on Admission: Shelley Espana Attending Provider on Discharge: Shelley Espana Consulting Providers: Ninfa Valera Primary Care Provider: Murray Escalona Condition: Stable Anticipated Discharge Date/Time: 10/11/24 Discharge Medications: New acetaminophen 325 mg Tablet 1,000 mg PO Q6H PRN (Reason: minor pain) Qty: 30 0RF docusate sodium 100 mg Capsule 100 mg PO BID PRN (Reason: Constipation) Qty: 30 0RF ibuprofen 600 mg Tablet 600 mg PO Q6H Qty: 30 0RF simethicone 80 mg Tablet,Chewable 160 mg PO Q4H PRN (Reason: gas) Qty: 20 0RF oxycodone 5 mg Tablet 5 mg PO Q4H PRN (Reason: Moderate Pain) Qty: 20 0RF Continued calcium citrate-vitamin D3 [Citracal Regular] 250 mg-5 mcg (200 unit) tablet 1 tab PO TID Qty: 270 3RF cetirizine [Zyrtec] 10 mg tablet 10 mg PO HS PRN (Reason: allergy symptoms) montelukast [Singulair] 10 mg tablet 10 mg PO HS hydrochlorothiazide 25 mg tablet 25 mg PO HS Flonase Sensimist 27.5 mcg/actuation spray,suspension 2 spray intranasal DAILY Rx Instructions: into each nostril triamcinolone acetonide 0.1 % cream 1 applic topical BID PRN Patient Comments: Backs of both arms amlodipine 10 mg tablet 10 mg PO HS omeprazole 20 mg capsule,delayed release(DR/EC) 20 mg PO HS levothyroxine 125 mcg tablet 125 mcg PO DAILY Qty: 90 3RF Discharge Orders: Discharge Order (Routine); Ordered 10/11/24 Ordered By: Shelley Espana Patient Education: Hysterectomy (DC) Activity Level: No strenuous activity and No Weight Bearing Activity Detail: Nothing vaginally, no heavy lifting more than 15-20pounds for 6 weeks Discharge Diet: Heart Healthy (2 gm sodium, low fat) Follow Up Appointments: Murray Escalona MD [Primary Care Provider] - [facility]
--- NOTE | 2024-10-11 17:31 | PC.NURSE ---
Shift Summary: Patient pleasant and cooperative. Up with SBA,walked in halls this afternoon. Pain managed with scheduled and PRN medication. Voiding well with catheter out. Denies any blood vaginally. Reviewed discharge instructions, follow up and medications with patient and with use of in person computer technician. IV removed with catheter intact. Incision site open to air, no drainage noted. Discharged to home @ 1721.
--- OUTSIDE RECORDS SUMMARY | 2024-10-18 11:48 | XMS_ITS | Clinical Summary ---
Author Organization [facility] Address [place], [place] [address] Care Team Providers Care Medical Records Assistant Name Role Phone Pcp, No Primary Care Provider Unavailabl e Allergies No known active allergies Medications Medication Sig Dispensed Refills Start Date End Date Status ondansetron (ZOFRAN ODT) 4 mg disintegrating tabletIndications:Bili imani colic Place 1 tablet on the tongue every 8 hours if needed for Nausea/Vomiting. 12 tablet 0 09/01/2016 Active calcium carbonate-vitamin D3, 600 mg-400 unit, 600 mg(1,500mg) -400 unit tablet 09/11/2020 Active ibuprofen (ADVIL; MOTRIN) 400 mg tablet Take 400 mg by mouth every 6 hours if needed. 11/13/2020 Active loratadine (CLARITIN) 10 mg tablet Take 10 mg by mouth. 05/28/2020 Active omeprazole (PRILOSEC) 20 mg Delayed-Release capsule Take 20 mg by mouth. 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 1 Tube 1 03/06/2021 Active Encounters Date Type Department Care Team Description 10/11/2024 Lab Requisition [facility] [phone] Shelley Espana MD 09/25/2024 1:00 PM CDT Ancillary Procedure [facility] [address] [place] [address] from Last 3 Months Immunizations Name Administration Dates Next Due COVID-19 vaccine (Moderna 100mcg/0.5mL) PF, MDV 02/03/2021 DT (Age < 7 years) 11/28/2002 Influenza Virus, Unspecified 07/29/2018, 10/26/2013,09/08/2010,2008 Influenza, IIV3 (Age >=3 years) 09/07/2012,09/07 Influenza, IIV4 11/29/2019 Influenza, IIV4 (=>6mos) MDV 10/26/2013 Td (Age >=7 Years) 11/28/2002 Tdap 01/09/2014 Tetanus Toxoid, Unspecified 01/09/2014 Social History Tobacco Use Types Packs/Day Years Used Date Smoking Tobacco: Never Smokeless Tobacco: Never Alcohol Use Standard Drinks/Week Comments No 0 (1 standard drink = 0.6 oz pur e alcohol) Sex and Gender Information Value Date Recorded Sex Assigned at Not on file Gender Identity Not on file Sexual Orientation Not on file Obstetrics History Para Term AB IAB SAB Ectopic Multiple Livin g Live Births 1 1 1 1 1 Date Outcome GA Total Labor Labor/2nd/3rd Weight Sex Type Anes PTL Fide A1 A5 Name Clin Term Living Last Filed Vital Signs Vital Sign Reading Time Taken Comments Blood Pressure 120/82 03/06/2021 8:49 AM CDT Pulse 82 03/06/2021 8:49 AM CDT Temperature 37.1 C (98.7 F) 09/01/2016 1:35 PM CDT Respiratory Rate 19 09/01/2016 5:46 PM CDT Oxygen Saturation 94% 09/01/2016 5:46 PM CDT Inhaled Oxygen Concentration - - Weight 70.3 kg (155 lb) 03/06/2021 8:49 AM CDT Height 152.4 cm (5') 03/06/2021 8:49 AM CDT Body Mass Index 30.27 03/06/2021 8:49 AM CDT Plan of Treatment Health Maintenance Due Date Last Done Comments HIV for age 15-65 1981 Hepatitis C screening for age 18-79 1984 Colonoscopy through age 75 2011 Lipids for age 45-75 2011 Mammogram for age 45-75 2011 Zoster (shingles) series for age 50+ (1 of 2) 2016 BMI (ht and wt on same day) for age 18+ 03/06/2022 03/06/2021, 09/01/2016 Depression screening for age 12+ 03/06/2022 03/06/2021, 02/26/2021, 02/25/2021 Tetanus booster 01/09/2024 01/09/2014, 11/28/2002 COVID-19 vaccine series (2023- season) 2024 08/18/2022, 11/08/2021, 02/03/2021 Influenza for age 50-64 07/29/2024 11/29/19 20, 07/29/2018, 10/26/2013, Additional history exists Pap test for age 21-65 06/11/2027 06/11/2024, 2023 Tdap Completed 01/09/2014 Pneumococcal series for age 6-64 Aged Out No longer eligible based on patient's age to complete this topic Procedures Procedure Name Priority Date/Time Associated Diagnosis Comments LAB TRACKING EVENT Routine 10/10/2024 10 :24 AM PAPER CONE MACHINE OPERATOR PATH TISSUE EXAM Routine 10/10/2024 10:2 4 AM PAPER CONE MACHINE OPERATOR ECHO STRESS EXERCISE WO CONTRAST W COLOR W LTD DOPPLER Routine 09/25/2024 1:43 PM CDT Chest pain, unspecified HPV HIGH RISK Routine 06/11/2024 12:00 PM CDT from Last 3 Months or Most Recently Relevant to Health Maintenance Results * LAB TRACKING EVENT (10/10/2024 10:24 AM PAPER CONE MACHINE OPERATOR) Other (Other) Client Collect / Unknown 10/10/2024 10:24 AM PAPER CONE MACHINE OPERATOR 10/11/2024 10:19 AM PAPER CONE MACHINE OPERATOR Shelley Espana MD LAB BILL O MANUELY [facility] [address] [place] [address], * PATH TISSUE EXAM (10/10/2024 10:24 AM PAPER CONE MACHINE OPERATOR) Case Report Pathology Report Case: [id number] Authorizing Provider: Shelley Espana Collected: 10/10/2024 1024 MD Sera Ordering Location: [facility] Received: 10/11/2024 1020 Pathologist: Phyllis Rehman MD Specimen: Uterus 10/16/2024 12:54 PM PAPER CONE MACHINE OPERATOR [facility] Final Diagnosis A) UTERUS WITH CERVIX, LEFT OVARY, AND FALLOPIAN TUBES, TOTAL HYSTERECTOMY WITH RIGHT SALPINGECTOMY AND LEFT SALPINGO-OOPHOREC BILL: 1. Cervix: No significant histologic abnormality 2. Endometrium: Inactive 3. Myometrium: Leiomyomas 4. Uterine serosa: Adhesions 5. Left ovary: Adhesions, otherwise unremarkable 6. Right fallopian tube: Adhesions, otherwise no significant histologic abnormality 7. Left fallopian tube: Adhesions, otherwise no significant histologic abnormality 8. Uterine weight: 31 grams 9. Negative for malignancy 10/16/2024 12:54 PM PAPER CONE MACHINE OPERATOR [facility] Clinical Information Pelvic organ prolapse. 10/16/2024 12:54 PM PAPER CONE MACHINE OPERATOR [facility] Gross Description A) Received in formalin, labeled with the patient's name and uterus, left fallopian tube, left ovary and right fallopian tube, is a 31 gram(uterus and cervix weight only), 7.2 (fundus-cervix) by 3.4 (cornu-cornu) by 2.5 (anterior-posteri or) cm total hysterectomy and bilateral fimbriated fallopian tubes with left ovary specimen. The 3.7 cm long, 2.6 cm diameter cervix has a 1.0 cm cervical os. The ectocervical mucosa is smooth with a distinct squamocolumnar junction. The endocervical canal is patent. The endometrium is 0.1 cm thick. No endometrial lesions are identified. There are 2, 0.6-1.3 cm pink rubbery well-circumscribe d intramural nodules. The nodules have a white whorling center with no evidence of hemorrhage, necrosis or calcifications. The myometrium is 1.0 cm thick. The serosa is purple dull with hemorrhagic adhesions. Right fallopian tube: 3.7 cm in length by 0.7 cm in diameter fimbriated fallopian tube. The serosal surface has hemorrhagic adhesions. The cut surface has pink stellate lumen surrounded by unremarkable mucosa. Left ovary: 2.0 x 1.4 x 0.8 cm pink rubbery ovary. The serosal surface has hemorrhagic adhesions. The cut surface has a chavez rubbery lobular center throughout. Left fallopian tube: 2.5 cm in length by 0.6 cm in diameter fimbriated fallopian tube adherent to the ovary. The serosal surface has hemorrhagic adhesions. The cut surface has a stellate lumen surrounded by unremarkable mucosa. Manager Primary Care sections and entire fimbria are submitted: 1. Anterior cervix 2. Posterior cervix 3. Anterior uterine wall, full-thickness 4. Posterior uterine wall, full-thickness 5. Intramural nodules 6. Right fallopian tube and entire fimbria 7. Left ovary 8. Left fallopian tube and entire fimbria Time and date in formalin: 1124 on 10/10/2024 TRS 10/11/2024 10/16/2024 12:54 PM PAPER CONE MACHINE OPERATOR [facility]- ENTRAL LABORATORY Microscopic Description The final diagnosis is based on microscopic examination of appropriate sections of all specimens. 10/16/2024 12:54 PM PAPER CONE MACHINE OPERATOR [facility] Additional Information Interpreted at [facility], Central Laboratory - [address] [facility] [place] [address], [place] [address] 10/16/2024 12:54 PM PAPER CONE MACHINE OPERATOR [facility]- ENTRAL LABORATORY Other SPECIMEN FROM UTERUS / Unknown 10/10/2024 10:24 AM PAPER CONE MACHINE OPERATOR 10/11/2024 10:20 AM PAPER CONE MACHINE OPERATOR Shelley Espana MD PATHOLOGY/ CYTOLOGY [facility] [address] [place] [address], [place] * ECHO STRESS EXERCISE WO CONTRAST W COLOR W LTD DOPPLER (09/25/2024 1:43 PM CDT) AORTIC VALVE MEAN PG 9 mmHg EJECTION FRACTION 75 % PEAK TR VELOCITY 2.4 m/s LVEDD 4.2 cm EJECTION FRACTION 55 - 60% Anatomical Region Laterality Modality Ultrasound 09/25/2024 1:06 PM CDT Narrative 09/25/2024 2:05 PM CDT STRESS ECHOCARDIOGRAM SHIREEN DICKSON : 1965 59 years Study Date: 09/25/2024 1:06:40 PM Gender: F BP: 143/90 mmHg Height: 150.00 cm BSA: 1.68 m Weight: 73.00 kg Tech: SAMI Referring MD: USHA ESCALONA Site: [facility] Reading Location: Mobile-OP Patient Location: Outpatient. Procedure: Stress Echo, Color Doppler and Limited Spectral Doppler. Eleazar stress echo. Indication for study: Chest pain, unspecified Cardiac Rhythm: Regular.Study quality: Good. Final Impressions: 1. Negative stress echo for ischemia. 2. Post stress, decreased left ventricular size, increased global systolic function with an estimated EF of 65 to 70%. 3. Maximum stress test with 109.3% of age predicted maximum heart rate achieved. 4. Good exercise duration and workload. 5. During stress exam the patient developed no significant symptoms. 6. The aortic valve is sclerotic, no stenosis and no regurgitation. 7. See separate report for EKG interpretation. Stress Data: HR Systolic Diastolic Time Duration Minutes Baseline 76 bpm 143 90 mmHg 7 Peak 177 bpm 163 75 mmHg Max Pred HR 162 % of Max 109% Double Product [id number] Echo Findings:This is a negative stress echo test for ischemia. Post stress, decreased left ventricular size, increased global systolic function with an estimated EF of 65 to 70%. LV regional wall motion abnormalities are not present post exercise. EKG:See separate report for EKG interpretation. Exam Protocol:The patient presents with no significant symptoms at baseline. The patient exercised 7 min to stage III according to the Eleazar stress echo protocol. Test terminated due to fatigue. 10.2 METS were achieved. The patient achieved a heart rate of 177 bpm which is 109.3% of maximum predicted heart rate. Maximum systolic blood pressure was 163 [place] [id number]. Maximum stress test with 109.3% of age predicted maximum heart rate achieved. The blood pressure response was normal. Exercise duration and workload were good. The patient developed no significant symptoms during the stress exam. Low (less than 1% annual mortality rate) non invasive risk stratification. Chamber Sizes and Function Normal left ventricular size, normal global systolic function with an estimated EF of 55 - 60%. LV regional wall motion abnormalities are not present. Right atrial area is 13 cm . The sinus of Valsalva is normal sized. The ascending aorta is normal sized. Valves, RV Pressures and Diastolic Function The aortic valve is sclerotic, no stenosis and no regurgitation. The mitral valve is normal in structure, no mitral regurgitation. The tricuspid valve is normal in structure. Tricuspid regurgitation is mild. The tricuspid regurgitant velocity is 2.4 m/s, the estimated right ventricular systolic pressure is 23 mmHg plus right atrial pressure. MEASUREMENTS AND CALCULATIONS 2-D Measurements and LV Function: LVID (d) 4.2 cm LV FS% (2D) 30 % LVID (s) 2.9 cm LVOT diameter 1.9 cm IVS (d) 0.7 cm HR 76 bpm LVPW (d) 0.8 cm LA Vol index 31 ml/m2 Ao Sinus 3.0 cm RA area 13 cm Asc Ao 3.5 cm RV Max 4C (d) 3.2 cm LA 3.1 cm Diastology: Mitral Tissue Doppler E Peak 1.01 m/s e', Septum 0.06 m/s A Peak 1.43 m/s e', Lateral 0.08 m/s E/A 0.7 E/e' Average 14.43 DT 238 msec Aortic Valve: Vmax 2.0 m/s YAMEL (V) 2.01 cm VTI 0.42 m YAMEL (I) 1.95 cm LVOT V max 1.4 m/s Max PG 16 mmHg LVOT VTI 0.29 m Mean PG 9 mmHg SV 82 ml Dim Index 0.70 SV index 49 ml/m Mitral Valve: MVA 3.2 cm MV P 1/2 69 msec Tricuspid Valve and estimated PA pressures: TR Vmax 2.4 m/s TAPSE 2.0 cm TR maxG 23 mmHg . This study was interpreted by an [facility] accredited facility. CC: [facility] ([facility]) [facility]. Final Procedure Note Jessy De Guzman MD - 09/25/2024 STRESS ECHOCARDIOGRAM SHIREEN DICKSON : 1965 59 years Study Date: 09/25/2024 1:06:40 PM Gender: F BP: 143/90 mmHg Height: 150.00 cm BSA: 1.68 m Weight: 73.00 kg Tech: SAMI Referring MD: USHA ESCALONA Site: [facility] Reading Location: Mobile-OP Patient Location: Outpatient. Procedure: Stress Echo, Color Doppler and Limited Spectral Doppler. Brucestress echo. Indication for study: Chest pain, unspecified Cardiac Rhythm: Regular.Study quality: Good. Final Impressions: 1. Negative stress echo for ischemia. 2. Post stress, decreased left ventricular size, increased globalsystolic function with an estimated EF of 65 to 70%. 3. Maximum stress test with 109.3% of age predicted maximum heart rateachieved. 4. Good exercise duration and workload. 5. During stress exam the patient developed no significant symptoms. 6. The aortic valve is sclerotic, no stenosis and no regurgitation. 7. See separate report for EKG interpretation. Stress Data: HR Systolic Diastolic Time Duration Minutes Baseline 76 bpm 143 90 mmHg 7 Peak 177 bpm 163 75 mmHg Max Pred HR 162 % of Max 109% Double Product [id number] Echo Findings:This is a negative stress echo test for ischemia. Poststress, decreased left ventricular size, increased global systolicfunction with an estimated EF of 65 to 70%. LV regional wall motionabnormalities are not present post exercise. EKG:See separate report for EKG interpretation. Exam Protocol:The patient presents with no significant symptoms atbaseline. The patient exercised 7 min to stage III according to the Brucestress echo protocol. Test terminated due to fatigue. 10.2 METS wereachieved. The patient achieved a heart rate of 177 bpm which is 109.3% ofmaximum predicted heart rate. Maximum systolic blood pressure was 163 mmHg[place] [id number]. Maximum stress test with 109.3% ofage predicted maximum heart rate achieved. The blood pressure response wasnormal. Exercise duration and workload were good. The patient developed nosignificant symptoms during the stress exam. Low (less than 1% annualmortality rate) non invasive risk stratification. Chamber Sizes and Function Normal left ventricular size, normal global systolic function with anestimated EF of 55 - 60%. LV regional wall motion abnormalities are notpresent. Right atrial area is 13 cm . The sinus of Valsalva is normalsized. The ascending aorta is normal sized. Valves, RV Pressures and Diastolic Function The aortic valve is sclerotic, no stenosis and no regurgitation. Themitral valve is normal in structure, no mitral regurgitation. Thetricuspid valve is normal in structure. Tricuspid regurgitation is mild.The tricuspid regurgitant velocity is 2.4 m/s, the estimated rightventricular systolic pressure is 23 mmHg plus right atrial pressure. MEASUREMENTS AND CALCULATIONS 2-D Measurements and LV Function: LVID (d) 4.2 cm LV FS% (2D) 30 % LVID (s) 2.9 cm LVOT diameter 1.9 cm IVS (d) 0.7 cm HR 76 bpm LVPW (d) 0.8 cm LA Vol index 31 ml/m2 Ao Sinus 3.0 cm RA area 13 cm Asc Ao 3.5 cm RV Max 4C (d) 3.2 cm LA 3.1 cm Diastology: Mitral Tissue Doppler E Peak 1.01 m/s e', Septum 0.06 m/s A Peak 1.43 m/s e', Lateral 0.08 m/s E/A 0.7 E/e' Average 14.43 DT 238 msec Aortic Valve: Vmax 2.0 m/s YAMEL (V) 2.01 cm VTI 0.42 m YAMEL (I) 1.95 cm LVOT V max 1.4 m/s Max PG 16 mmHg LVOT VTI 0.29 m Mean PG 9 mmHg SV 82 ml Dim Index 0.70 SV index 49 ml/m Mitral Valve: MVA 3.2 cm MV P 1/2 69 msec Tricuspid Valve and estimated PA pressures: TR Vmax 2.4 m/s TAPSE 2.0 cm TR maxG 23 mmHg . This study was interpreted by an [facility] accredited facility. CC: [facility] ([facility]) [facility]. Final Usha Escalona MD ECHO ORD * HPV HIGH RISK (06/11/2024 12:00 PM CDT) TYPE 16 Negative Negative 06/16/2024 10:59 AM CDT [facility] TYPE 18 Negative Negative 06/16/2024 10:59 AM CDT [facility] LAB[facility] OTHER HIGH RISK TYPES Negative Negative 06/16/2024 10:59 AM CDT [facility] Other (Cervical) 06/11/2024 12:00 PM CDT 06/14/2024 8:23 AM CDT Narrative [facility] - 06/16/2024 10:59 AM CDT HPV types 16, 18, 31, 33, 35, 39, 45, 51, 52, 56, 58, 59, 66 and 68 DNA were undetectable or below the pre-set threshold. Methodology: Maryam Becca 4800 HPV Test Shelley Espana MD MICROBIOLO GY [facility] [address] [place] [address], from Last 3 Months or Most Recently Relevant to Health Maintenance Care Teams Medical Records Assistant Relationship Specialty Start Date End Date Pcp, No . PCP - General 09/01/16
--- OUTSIDE RECORDS SUMMARY | 2024-10-18 11:48 | XMS_ITS | Clinical Summary ---
Author Organization New Site Address [address] [place] [address] Care Team Providers Care Electrical Continuity Tester Name Role Phone No Ref-Primary, Physician Primary Care Provider [facility] Allergies No known active allergies Medications IBUPROFEN PO Active HYDROcodone-acetam inophen (NORCO) 5-325 MG per tabletIndications: Acute cholecystitis Take 1-2 tablets by mouth every 4 hours as needed for other (Moderate to Severe Pain) 30 tablet 7 Active Active Problems No known active problems Immunizations Name Administration Dates Next Due DT (PEDS <7y) 11/28/2002 Td,adult,historic,unspecified 11/28/2002 Family History Medical History Relation Comments Unknown/Adopted Father Unknown/Adopted Mother Relation Status Comments Father Mother Social History Tobacco Use Types Packs/Day Years Used Date Smoking Tobacco: Never Tobacco Cessation:Counseling Given: Yes Alcohol Use Standard Drinks/Week Comments No 0 (1 standard drink = 0.6 oz pur e alcohol) Adolescent Education Answer Date Record ed Getting School Help Needed Not on file 08/19 Comments No Sex and Gender Information Value Date Recorded Sex Assigned at Not on file Legal Sex Female 1:36 PM CDT Gender Identity Not on file Sexual Orientation Not on file Last Filed Vital Signs Vital Sign Reading Time Taken Comments Blood Pressure 181/107 03/24/2024 6:07 PM CDT Pulse 76 03/24/2024 6:07 PM CDT Temperature 36.5 C (97.7 F) 03/24/2024 6:07 PM CDT Respiratory Rate 18 03/24/2024 6:07 PM CDT Oxygen Saturation 97% 03/24/2024 6:07 PM CDT Inhaled Oxygen Concentration - - Weight 76.3 kg (168 lb 3.4 oz) 03/24/2024 6:07 P M CDT Height 152.4 cm (5') 03/24/2024 6:07 PM CDT Body Mass Index 32.85 03/24/2024 6:07 PM CDT Plan of Treatment Health Maintenance Due Date Last Done Comments ADVANCE CARE PLANNING 1965 ANNUAL REVIEW OF HM ORDERS 1965 CT COLONOGRAPHY 1965 FIT 1965 FLEX SIG 1965 YEARLY PREVENTIVE VISIT 1965 sDNA (Cologuard) 1965 COLONOSCOPY 1976 COLORECTAL CANCER SCREENING 1976 HIV SCREENING 1981 HEPATITIS C SCREENING 1984 HEPATITIS B IMMUNIZATION (1 of 3 - 19+ 3-dose series) 1985 LIPID 2006 PAP 09/13/2016 09/13/2013 ZOSTER IMMUNIZATION (1 of 2) 2016 PHQ-2 (once per calendar year) 2023 DTAP/TDAP/TD IMMUNIZATION (2 - Td or Tdap) 01/09/2024 01/09/2014, 11/28/2002, 11/28/2002 COVID-19 Vaccine ( season) 2024 08/18/2022, 11/08/2021, 03/03/2021, Additional history exists INFLUENZA VACCINE (#1) 2024 2, 11/30/2021, 11/29/2019, Additional history exists MAMMO SCREENING 11/02/2024 11/02/2022, 04/2022, 09/08/2021, Additional history exists GLUCOSE 03/24/2027 03/24/2024, 12/29, 02/14/2017 RSV VACCINE (1 - 1-dose 75+ series) 2041 HPV IMMUNIZATION Aged Out No longer e ligible based on patient's age to complete this topic MENINGITIS IMMUNIZATION Aged Out No l onger eligible based on patient's age to complete this topic Pneumococcal Vaccine: Pediatrics (0 to 5 Years) and At-Risk Patients (6 to 64 Years) Aged Out No longer eligible based on patient's age to complete this topic RSV MONOCLONAL ANTIBODY Aged Out No l onger eligible based on patient's age to complete this topic Procedures Procedure Name Priority Date/Time Associated Diagnosis Comments COMPREHENSIVE METABOLIC PANEL STAT 03/24/2024 7:40 PM CDT from Last 3 Months or Most Recently Relevant to Health Maintenance Results * (ABNORMAL) Comprehensive metabolic panel (03/24/2024 7:40 PM CDT) Sodium 140 135 - 145 mmol/L 03/24/2024 8:53 PM CDT [facility] Comment:Reference intervals for this test were updated on 08/23/2023 to more accurately reflect our healthy population. There may be differences in the flagging of prior results with similar values performed with this method. Interpretation of those prior results can be made in the context of the updated reference intervals. Potassium 3.9 3.4 - 5.3 mmol/L 03/24/2024 8:53 PM CDT [facility] Carbon Dioxide (CO2) 32(H) 22 - 29 mmol/L 03/24/2024 8:53 PM CDT [facility] Anion Gap 9 7 - 15 mmol/L 03/24/2024 8:53 PM CDT [facility] Urea Nitrogen 10.4 6.0 - 20.0 mg/dL 03/24/2024 8:53 PM CDT [facility] Creatinine 0.80 0.51 - 0.95 mg/dL 03/24/2024 8:53 PM CDT [facility] GFR Estimate 85 >60 mL/min/1. 73m2 03/24/2024 8:53 PM CDT [facility] Calcium 10.0 8.6 - 10.0 mg/dL 03/24/2024 8:53 PM CDT [facility] Chloride 99 98 - 107 mmol/L 03/24/2024 8:53 PM CDT [facility] Glucose 94 70 - 99 mg/dL 03/24/2024 8:53 PM CDT [facility] Alkaline Phosphatase 87 40 - 150 U/L 03/24/2024 8:53 PM CDT [facility] Comment:Reference intervals for this test were updated on 10/11/2023 to more accurately reflect our healthy population. There may be differences in the flagging of prior results with similar values performed with this method. Interpretation of those prior results can be made in the context of the updated reference intervals. AST 36 0 - 45 U/L 03/24/2024 8:53 PM CDT [facility] Comment:Reference intervals for this test were updated on 05/09/2023 to more accurately reflect our healthy population. There may be differences in the flagging of prior results with similar values performed with this method. Interpretation of those prior results can be made in the context of the updated reference intervals. ALT 23 0 - 50 U/L 03/24/2024 8:53 PM CDT [facility] Comment:Reference intervals for this test were updated on 05/09/2023 to more accurately reflect our healthy population. There may be differences in the flagging of prior results with similar values performed with this method. Interpretation of those prior results can be made in the context of the updated reference intervals. Protein Total 8.5(H) 6.4 - 8.3 g/dL 03/24/2024 8:53 PM CDT [facility] Albumin 4.4 3.5 - 5.2 g/dL 03/24/2024 8:53 PM CDT [facility] Bilirubin Total 0.3 <=1.2 mg/dL 03/24/2024 8:53 PM CDT [facility] Blood BLOOD SPECIMEN / Unknown Venipuncture / Unknown 03/24/2024 7:40 PM CDT 03/24/2024 7:55 PM CDT us Justen Erazo MD LAB - BLOOD ORDERABLES Final Result [facility] [address] [facility] (1st floor, no room number) [place] [address], [facility] from Last 3 Months or Most Recently Relevant to Health Maintenance Additional Health Concerns Infection Onset Date Last 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
--- OUTSIDE RECORDS SUMMARY | 2024-10-18 11:48 | XMS_ITS | Referral Summary ---
Author Organization [facility] Address [address] [place] [address] Care Team Providers Care Materials Management Manager Name Role Phone No Ref-Primary, Physician Primary Care Provider [facility] Allergies No known active allergies Medications IBUPROFEN PO Active HYDROcodone-acetam inophen (NORCO) 5-325 MG per tabletIndications: Acute cholecystitis Take 1-2 tablets by mouth every 4 hours as needed for other (Moderate to Severe Pain) 30 tablet 7 Active Active Problems No known active problems Immunizations Name Administration Dates Next Due DT (PEDS <7y) 11/28/2002 Td,adult,historic,unspecified 11/28/2002 Social History Tobacco Use Types Packs/Day Years [...] 03/24/2024 6:07 PM CDT Plan of Treatment Not on file Procedures Procedure Name Priority Date/Time Associated Diagnosis [...] MD LAB - BLOOD ORDERABLES Final Result LABORATORY [facility] [address] [facility] Lab (1st floor, no room number) [place] [address], [facility] from Last 3 Months or Most Recently Relevant to Health Maintenance Additional Health Concerns Infection Onset Date Last 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
--- OUTSIDE RECORDS SUMMARY | 2024-10-18 11:49 | XMS_ITS | Encounter Summary ---
Author Organization [facility] Address [address] [address] Care Team Providers Care Medical Claims Representative Name Role Phone Komal Taylor MD Primary Care Provider [phone] Encounter Details Date Type Department Care Team (Late st Contact Info) Description 09/14/2018 Correspondence [facility] Department CHEMOTHERAPY AUTHORIZATION Social History Tobacco Use Types Packs/Day Years Used Date Smoking Tobacco: Never Smokeless Tobacco: Never Alcohol Use Standard Drinks/Week Comments No 0 (1 standard drink = 0.6 oz pur e alcohol) Sex and Gender Information Value Date Recorded Sex Assigned at Not on file Gender Identity Not on file Sexual Orientation Not on file documented as of this encounter Plan of Treatment Upcoming Encounters Date Type Department Care Team (Late st Contact Info) Description 10/19/2024 2:00 PM SENIOR UI DESIGNER Appointment [address] [address] 10/19/2024 2:30 PM SENIOR UI DESIGNER Appointment [facility] at [address] [address] Junie Levi, BEN [address] [place] [address] documented as of this encounter Visit Diagnoses Not on filedocumented in this encounter Additional Health Concerns Infection Onset Date Last Indicated Resolved Time R/O COVID19 05/28/2020 05/28/2020 05/30/2020 4:24 AM CDT R/O COVID19 11/27/2021 11/27/2021 11/27/2021 7:23 PM SENIOR UI DESIGNER R/O COVID19 03/29/2024 03/29/2024 03/29/2024 8:25 PM CDT documented as of this encounter Care Teams Medical Claims Representative Relationship Specialty Start Date End Date Komal Taylor MD [address] [place] [address] PCP - General Family Practice 02/16/19 documented as of this encounter
--- OUTSIDE RECORDS SUMMARY | 2024-10-18 11:49 | XMS_ITS | Encounter Summary ---
Author Organization [facility] Address [address] [address] Care Team Providers Care Ore Miner Name Role Phone Komal Taylor MD Primary Care Provider [phone] Encounter Details Date Type Department Care Team (Late st Contact Info) Description 10/26/2013 Consent for Procedure/Treatme nt [facility] Department RH INFORMED CONSENT Social History Tobacco Use Types Packs/Day Years Used Date Smoking Tobacco: Never Smokeless Tobacco: Never Alcohol Use Standard Drinks/Week Comments No 0 (1 standard drink = 0.6 oz pur e alcohol) Sex and Gender Information Value Date Recorded Sex Assigned at Not on file Gender Identity Not on file Sexual Orientation Not on file documented as of this encounter Progress Notes * [facility], PROVIDER - 10/26/2013 12:00 AM CST R MANUFACTURER'S REPRESENTATIVE documented in this encounter Plan of Treatment Upcoming Encounters Date Type Department Care Team (Late st Contact Info) Description 10/19/2024 2:00 PM SOLAR MANUFACTURER'S REPRESENTATIVE Appointment [facility] [address] [place] [address] 10/19/2024 2:30 PM SOLAR MANUFACTURER'S REPRESENTATIVE Appointment [facility] at [address] [address] Junie Levi PA-C [address] [place] [address] documented as of this encounter Visit Diagnoses Not on filedocumented in this encounter Additional Health Concerns Infection Onset Date Last Indicated Resolved Time R/O COVID19 05/28/2020 05/28/2020 05/30/2020 4:24 AM CDT R/O COVID19 11/27/2021 11/27/2021 11/27/2021 7:23 PM SOLAR MANUFACTURER'S REPRESENTATIVE R/O COVID19 03/29/2024 03/29/2024 03/29/2024 8:25 PM CDT documented as of this encounter Care Teams Ore Miner Relationship Specialty Start Date End Date Komal Taylor MD [address] [place] [address] PCP - General Family Practice 02/16/19 documented as of this encounter
--- OUTSIDE RECORDS SUMMARY | 2024-10-18 11:49 | XMS_ITS | Encounter Summary ---
Author Organization [facility] Address [address] [address] Care Team Providers Care Note Specialist Name Role Phone Komal Taylor MD Primary Care Provider [phone] Encounter Details Date Type Department Care Team (Late st Contact Info) Description 03/01/2019 Correspondence [facility] at [address] [address] Cancer Center, Provider RH CLINICAL TRIAL CONSENT Social History Tobacco Use Types Packs/Day [...] st Contact Info) Description 10/19/2024 2:00 PM PHYSICAL THERAPY AIDES TEACHER Appointment [address] [address] 10/19/2024 2:30 PM PHYSICAL THERAPY AIDES TEACHER Appointment [facility] at [address] [address] Junie Levi PA-C [address] [place] [address] documented as of this encounter Visit Diagnoses Not on filedocumented in this encounter Additional Health Concerns Infection Onset Date Last Indicated Resolved Time R/O COVID19 05/28/2020 05/28/2020 05/30/2020 4:24 AM CDT R/O COVID19 11/27/2021 11/27/2021 11/27/2021 7:23 PM PHYSICAL THERAPY AIDES TEACHER R/O COVID19 03/29/2024 03/29/2024 03/29/2024 8:25 PM CDT documented as of this encounter Care Teams Note Specialist Relationship Specialty Start Date End Date Komal Taylor MD [address] [place] [address] PCP - General Family Practice 02/16/19 documented as of this encounter
--- OUTSIDE RECORDS SUMMARY | 2024-10-18 11:49 | XMS_ITS | Encounter Summary ---
Author Organization [facility] Address [address] [address] Care Team Providers Care Renewals Representative Name Role Phone Komal Taylor MD Primary Care Provider [phone] Encounter Details Date Type Department Care Team (Late st Contact Info) Description 03/05/2019 Consent for Procedure/Treatme nt [facility] INFORMED CONSENT RECORD Social History Tobacco Use Types Packs/Day Years [...] st Contact Info) Description 10/19/2024 2:00 PM REPAIRER MAINTENANCE BUILDING Appointment [address] [address] 10/19/2024 2:30 PM REPAIRER MAINTENANCE BUILDING Appointment [facility] Center at [address] [address] Junie Levi PA-C [address] [place] [address] documented as of this encounter Visit Diagnoses Not on filedocumented in this encounter Additional Health Concerns Infection Onset Date Last Indicated Resolved Time R/O COVID19 05/28/2020 05/28/2020 05/30/2020 4:24 AM CDT R/O COVID19 11/27/2021 11/27/2021 11/27/2021 7:23 PM REPAIRER MAINTENANCE BUILDING R/O COVID19 03/29/2024 03/29/2024 03/29/2024 8:25 PM CDT documented as of this encounter Care Teams Renewals Representative Relationship Specialty Start Date End Date Komal Taylor MD [address] [place] [address] PCP - General Family Practice 02/16/19 documented as of this encounter
--- OUTSIDE RECORDS SUMMARY | 2024-10-18 11:49 | XMS_ITS | Encounter Summary ---
Author Organization [facility] Address [address] [address] Care Team Providers Care Hat And Cap Drying Room Attendant Name Role Phone Komal Taylor MD Primary Care Provider [phone] Encounter Details Date Type Department Care Team (Late st Contact Info) Description 09/06/2018 Correspondence [facility] [address] [place] [address] Radiology, Provider MRI SAFETY SHEET AND COMPATIBILITY FORM Social History Tobacco Use Types Packs/Day Years [...] st Contact Info) Description 10/19/2024 2:00 PM SECURITY CONSULTANT Appointment [address] [address] 10/19/2024 2:30 PM SECURITY CONSULTANT Appointment [facility] Cancer Center at [address] [address] Junie Levi PABeeC [address] [place] [address] documented as of this encounter Visit Diagnoses Not on filedocumented in this encounter Additional Health Concerns Infection Onset Date Last Indicated Resolved Time R/O COVID19 05/28/2020 05/28/2020 05/30/2020 4:24 AM CDT R/O COVID19 11/27/2021 11/27/202111/2711/27/2021 7:23 PM SECURITY CONSULTANT R/O COVID19 03/29/2024 03/29/2024 03/29/2024 8:25 PM CDT documented as of this encounter Care Teams Hat And Cap Drying Room Attendant Relationship Specialty Start Date End Date Komal Taylor MD [address] [place] [address] PCP - General Family Practice 02/16/19 documented as of this encounter
--- OUTSIDE RECORDS SUMMARY | 2024-10-18 11:49 | XMS_ITS | Encounter Summary ---
Author Organization [facility] Address [address], [place] [address] Care Team Providers Care Print Shop Chief Clerk Name Role Phone Komal Taylor MD Primary Care Provider [phone] Encounter Details Date Type Department Care Team (Late st Contact Info) Description 02/16/2019 Consent for Procedure/Treatme nt [facility] INFORMED CONSENT RECORD Social History Tobacco [...] st Contact Info) Description 10/19/2024 2:00 PM DRY WALL SPRAYER Appointment [address] [address] 10/19/2024 2:30 PM DRY WALL SPRAYER Appointment [facility] Cancer Center at [address] [address] Junie Levi PA-C [address] [place] [address] documented as of this encounter Visit Diagnoses Not on filedocumented in this encounter Additional Health Concerns Infection Onset Date Last Indicated Resolved Time R/O COVID19 05/28/2020 05/28/2020 05/30/2020 4:24 AM CDT R/O COVID19 11/27/2021 11/27/2021 11/27/2021 7:23 PM DRY WALL SPRAYER R/O COVID19 03/29/2024 03/29/2024 03/29/2024 8:25 PM CDT documented as of this encounter Care Teams Print Shop Chief Clerk Relationship Specialty Start Date End Date Komal Taylor MD [address] [place] [address] PCP - General Family Practice 02/16/19 documented as of this encounter
--- OUTSIDE RECORDS SUMMARY | 2024-10-18 11:49 | XMS_ITS | Encounter Summary ---
Author Organization [facility] Address [address], [place] [address] Care Team Providers Care Filtration Plant Operator Name Role Phone Komal Taylor MD Primary Care Provider [phone] Encounter Details Date Type Department Care Team (Late st Contact Info) Description 01/25/2019 Scanned History [facility] at [address] [address] Christy Ro [address] [place] [address] GENETIC COUNSELOR PATIENT FAMILY TREE Social History Tobacco Use Types Packs/Day Years [...] Upcoming Encounters Date Type Department Care Team ([facility] Contact Info) Description 10/19/2024 2:00 PM ICU SPECIALIST Appointment [address] [address] 10/19/2024 2:30 PM ICU SPECIALIST Appointment [facility] at [address] [address] Junie Levi PA-C [address] [place] [address] documented as of this encounter Visit Diagnoses Not on filedocumented in this encounter Additional Health Concerns Infection Onset Date Last Indicated Resolved Time R/O COVID19 05/28/2020 05/28/2020 05/30/2020 4:24 AM CDT R/O COVID19 11/27/2021 11/27/2021 11/27/2021 7:23 PM ICU SPECIALIST R/O COVID19 03/29/2024 03/29/2024 03/29/2024 8:25 PM CDT documented as of this encounter Care Teams Filtration Plant Operator Relationship Specialty Start Date End Date Komal Taylor MD [address] [place] [address] PCP - General Family Practice 02/16/19 documented as of this encounter
--- OUTSIDE RECORDS SUMMARY | 2024-10-18 11:49 | XMS_ITS | Encounter Summary ---
Author Organization [facility] Address [address] [address] Care Team Providers Care Wound Care Rn Name Role Phone Komal Taylor MD Primary Care Provider [phone] Reason for Visit * Reason Comments Reschedule Appointment Encounter Details Date Type Department Care Team ([facility] st Contact Info) Description 06/18/2024 Telephone [facility] at [address] [address] Junie Levi, PAShae [address] [place] [address] Reschedule Appointment Social History Tobacco Use Types Packs/Day Years Used Date Smoking Tobacco: Never Smokeless Tobacco: Never Alcohol Use Standard Drinks/Week Comments No 0 (1 standard drink = 0.6 oz pur e alcohol) PHQ-2 Answer Date Recorded PHQ-2 Score 0 06/17/2022 Sex and Gender Information Value Date Recorded Sex Assigned at Not on file Gender Identity Not on file Sexual Orientation Not on file documented as of this encounter Nursing Notes * Swapna Danielle - 09/04/2024 2:27 PM CDT Using human resources file clerk services, spoke to patient in regards to reschedule the appointment with Elena Levi on October 22, 2024. Appts changed to 10/19/24. Appt reminders and financial service information mailed. Unable to verify insurance at time of call. Anna Broussard 09/04/2024 2:51 PM * Bobby Camacho - 06/18/2024 3:35 PM CDT Called to R/S 10/22 appt per clinic and called cell no answer no vmail to leave message. Called hm # and phone isnt working BOBBY Gary 3:35 PMJuly 2023 documented in this encounter Plan of Treatment Upcoming Encounters Date Type Department Care Team (Late st Contact Info) Description 10/19/2024 2:00 PM SHORT RANGE AIR DEFENSE ARTILLERY Appointment [address] [address] 10/19/2024 2:30 PM SHORT RANGE AIR DEFENSE ARTILLERY Appointment [facility] at [address] [address] Junie Levi, PABeeC [address] [place] [address] documented as of this encounter Visit Diagnoses Not on filedocumented in this encounter Care Teams Wound Care Rn Relationship Specialty Start Date End Date Komal Taylor MD [address] [place] [address] PCP - General Family Practice 02/16/19 documented as of this encounter
--- OUTSIDE RECORDS SUMMARY | 2024-10-18 11:49 | XMS_ITS | Encounter Summary ---
Author Organization [facility] Address [address], [place] [address] Care Team Providers Care General Office Dispatcher Name Role Phone Komal Taylor MD Primary Care Provider [phone] Encounter Details Date Type Department Care Team (Late st Contact Info) Description 03/11/2024 Notes/Orders [facility] at [address] [address] Ivy Rooney MD [address] [place] [address] Social History Tobacco Use Types Packs/Day Years [...] Encounters Date Type Department Care Team (Late Contact Info) Description 10/19/2024 2:00 PM RUSSIAN LANGUAGE PROFESSOR Appointment [address] [address] 10/19/2024 2:30 PM RUSSIAN LANGUAGE PROFESSOR Appointment [facility] at [address] [address] Junie Levi PA-C [address] [place] [address] documented as of this encounter Visit Diagnoses Not on filedocumented in this encounter Additional Health Concerns Infection Onset Date Last Indicated Resolved Time R/O COVID19 03/29/2024 03/29/2024 03/29/2024 8:25 PM CDT documented as of this encounter Care Teams General Office Dispatcher Relationship Specialty Start Date End Date Komal Taylor MD [address] [place] [address] PCP - General Family Practice 02/16/19 documented as of this encounter
--- OUTSIDE RECORDS SUMMARY | 2024-10-18 11:49 | XMS_ITS | Encounter Summary ---
Author Organization [facility] [address], [place] [address] Care Team Providers Care Care Support Representative Name Role Phone Komal Taylor MD Primary Care Provider [phone] Reason for Visit * Reason Comments LAB TESTS, NOS Encounter Details Date Type Department Care Team ([facility] st Contact Info) Description 10/11/2024 Telephone [facility] Laboratory [address] [place] [address] Junie Levi, PAShae [address] [place] [address] LAB TESTS, NOS Social History Tobacco Use Types Packs/Day Years [...] as of this encounter Nursing Notes * Faizan Jorge RN - 10/11/2024 3:48 PM CST Lab orders updated. Faizan Meadows RN BSN 10/11/24 3:48 PM SWAMPER * Madelaine Brunson - 10/11/2024 3:36 PM CST Patient on lab schedule for 10/19. Please review and update. SWAMPER documented in this encounter Plan of Treatment Upcoming Encounters Date Type Department Care Team (Late st Contact Info) Description 10/19/2024 2:00 PM BUCK SWAMPER Appointment [facility] Laboratory [address] [place] [address] 10/19/2024 2:30 PM BUCK SWAMPER Appointment [facility] at [address] [address] Junie Levi, PABeeC [address] [place] [address] Scheduled Orders Name Type Priority Associated Diagnoses Orde r Schedule Complete Blood Count - with Diff Lab STAT Malignant neoplasm of upper-outer quadrant of right breast in female, estrogen receptor negative (HRC) Expected: 10/19/2024, Expires: 01/17/2025 Basic Metabolic Panel Lab STAT Malignant neoplasm of upper-outer quadrant of right breast in female, estrogen receptor negative (HRC) Expected: 10/19/2024, Expires: 01/17/2025 Liver Panel(Hepatic Function Panel) Lab Routine Malignant neoplasm of upper-outer quadrant of right breast in female, estrogen receptor negative (HRC) Expected: 10/19/2024, Expires: 01/17/2025 documented as of this encounter Visit Diagnoses Diagnosis Malignant neoplasm of upper-outer quadrant of right breast in female, estrogen receptor negative (HRC)- Primary documented in this encounter Care Teams Care Support Representative Relationship Specialty Start Date End Date Komal Taylor MD [facility] [place] [address] PCP - General Family Practice 02/16/19 documented as of this encounter
--- OUTSIDE RECORDS SUMMARY | 2024-10-18 11:49 | XMS_ITS | Encounter Summary ---
Author Organization [facility] Address [address], [place] [address] Care Team Providers Care Front Office Attendant Name Role Phone Komal Taylor MD Primary Care Provider [phone] Encounter Details Date Type Department Care Team (Late st Contact Info) Description 03/10/2024 Notes/Orders [facility] at [address] [address] Ivy Rooney MD [address] [place] [address] Social History Tobacco Use Types Packs/Day Years [...] (Late Contact Info) Description 10/19/2024 2:00 PM BOBBIN PRESSER Appointment [address] [address] 10/19/2024 2:30 PM BOBBIN PRESSER Appointment [facility] at [address] [address] Junie Levi PA-C [address] [place] [address] documented as of this encounter Visit Diagnoses Not on filedocumented in this encounter Additional Health Concerns Infection Onset Date Last Indicated Resolved Time R/O COVID19 03/29/2024 03/29/2024 03/29/2024 8:25 PM CDT documented as of this encounter Care Teams Front Office Attendant Relationship Specialty Start Date End Date Komal Taylor MD [address] [place] [address] PCP - General Family Practice 02/16/19 documented as of this encounter
--- OUTSIDE RECORDS SUMMARY | 2024-10-18 11:49 | XMS_ITS | Encounter Summary ---
Author Organization [facility] Address [address], [place] [address] Care Team Providers Care Financial Aid Name Role Phone Komal Taylor MD Primary Care Provider [phone] Encounter Details Date Type Department Care Team (Late st Contact Info) Description 02/16/2019 Consent for Procedure/Treatme nt [facility] INFORMED CONSENT RECORD Social History Tobacco Use [...] st Contact Info) Description 10/19/2024 2:00 PM CO FOUNDER AND CHIEF STRATEGY OFFICER Appointment [address] [address] 10/19/2024 2:30 PM CO FOUNDER AND CHIEF STRATEGY OFFICER Appointment [facility] at [address] [address] Junie Levi PA-C [address] [place] [address] documented as of this encounter Visit Diagnoses Not on filedocumented in this encounter Additional Health Concerns Infection Onset Date Last Indicated Resolved Time R/O COVID19 05/28/2020 05/28/2020 05/30/2020 4:24 AM CDT R/O COVID19 11/27/2021 11/27/2021 11/27/2021 7:23 PM CO FOUNDER AND CHIEF STRATEGY OFFICER R/O COVID19 03/29/2024 03/29/2024 03/29/2024 8:25 PM CDT documented as of this encounter Care Teams Financial Aid Relationship Specialty Start Date End Date Komal Taylor MD [address] [place] [address] PCP - General Family Practice 02/16/19 documented as of this encounter
--- OUTSIDE RECORDS SUMMARY | 2024-10-18 11:49 | XMS_ITS | Encounter Summary ---
Author Organization [facility] Address [address], [place] [address] Care Team Providers Care Machine Woodworking Sander Name Role Phone Komal Taylor MD Primary Care Provider [phone] Encounter Details Date Type Department Care Team (Late st Contact Info) Description 03/05/2019 Consent for Procedure/Treatme nt [facility] CONSENT FOR RADIATION THERAPY Social History Tobacco Use Types Packs/Day Years [...] st Contact Info) Description 10/19/2024 2:00 PM AVIATION MANAGER Appointment [address] [address] 10/19/2024 2:30 PM AVIATION MANAGER Appointment [facility] Center at [address] [address] Junie Levi PA-C [address] [place] [address] documented as of this encounter Visit Diagnoses Not on filedocumented in this encounter Additional Health Concerns Infection Onset Date Last Indicated Resolved Time R/O COVID19 05/28/2020 05/28/2020 05/30/2020 4:24 AM CDT R/O COVID19 11/27/2021 11/27/2021 11/27/2021 7:23 PM AVIATION MANAGER R/O COVID19 03/29/2024 03/29/2024 03/29/2024 8:25 PM CDT documented as of this encounter Care Teams Machine Woodworking Sander Relationship Specialty Start Date End Date Komal Taylor MD [address] [place] [address] PCP - General Family Practice 02/16/19 documented as of this encounter
--- OUTSIDE RECORDS SUMMARY | 2024-10-18 11:49 | XMS_ITS | Encounter Summary ---
Author Organization [facility] Address [address], [place] [address] Care Team Providers Care Keyboard Operator Name Role Phone Komal Taylor MD Primary Care Provider [phone] Encounter Details Date Type Department Care Team (Late st Contact Info) Description 09/04/2019 Specialty Pharmacy [facility] [address] [place] [address] Hans Barrientos, PharmD Social History Tobacco Use Types Packs/Day Years [...] st Contact Info) Description 10/19/2024 2:00 PM BARGEMAN Appointment [address] [address] 10/19/2024 2:30 PM BARGEMAN Appointment [facility] at [address] [address] Junie Levi, PA-C [address] [place] [address] documented as of this encounter Visit Diagnoses Not on filedocumented in this encounter Additional Health Concerns Infection Onset Date Last Indicated Resolved Time R/O COVID19 05/28/2020 05/28/2020 05/30/2020 4:24 AM CDT R/O COVID19 11/27/2021 11/27/2021 11/27/2021 7:23 PM BARGEMAN R/O COVID19 03/29/2024 03/29/2024 03/29/2024 8:25 PM CDT documented as of this encounter Care Teams Keyboard Operator Relationship Specialty Start Date End Date Komal Taylor MD [address] [place] [address] PCP - General Family Practice 02/16/19 documented as of this encounter
--- OUTSIDE RECORDS SUMMARY | 2024-10-18 11:49 | XMS_ITS | Encounter Summary ---
Author Organization [facility] Address [address], [place] [address] Care Team Providers Care Airfield Engineer Officer Name Role Phone Komal Taylor MD Primary Care Provider [phone] Encounter Details Date Type Department Care Team (Late st Contact Info) Description 09/13/2018 Consent for Procedure/Treatme nt [facility] INFORMED CONSENT RECORD Social History Tobacco [...] st Contact Info) Description 10/19/2024 2:00 PM WELT EDGE ROUNDER Appointment [address] [address] 10/19/2024 2:30 PM WELT EDGE ROUNDER Appointment [facility] at [address] [address] Junie Levi PA-C [address] [place] [address] documented as of this encounter Visit Diagnoses Not on filedocumented in this encounter Additional Health Concerns Infection Onset Date Last Indicated Resolved Time R/O COVID19 05/28/2020 05/28/2020 05/30/2020 4:24 AM CDT R/O COVID19 11/27/2021 11/27/2021 11/27/2021 7:23 PM WELT EDGE ROUNDER R/O COVID19 03/29/2024 03/29/2024 03/29/2024 8:25 PM CDT documented as of this encounter Care Teams Airfield Engineer Officer Relationship Specialty Start Date End Date Komal Taylor MD [address] [place] [address] PCP - General Family Practice 02/16/19 documented as of this encounter
--- OUTSIDE RECORDS SUMMARY | 2024-10-18 11:49 | XMS_ITS | Encounter Summary ---
Author Organization [facility] Address [address], [place] [address] Care Team Providers Care Truck Loader Name Role Phone Komal Taylor MD Primary Care Provider [phone] Encounter Details Date Type Department Care Team (Late st Contact Info) Description 02/02/2019 Consent for Procedure/Treatme nt [facility] I-125 RADIOACTIVE SEED WRITTEN DIRECTIVE Social History Tobacco Use Types Packs/Day Years [...] st Contact Info) Description 10/19/2024 2:00 PM ENGINEERING TECH Appointment [address] [address] 10/19/2024 2:30 PM ENGINEERING TECH Appointment [facility] at [address] [address] Junie Levi PA-C [address] [place] [address] documented as of this encounter Visit Diagnoses Not on filedocumented in this encounter Additional Health Concerns Infection Onset Date Last Indicated Resolved Time R/O COVID19 05/28/2020 05/28/2020 05/30/2020 4:24 AM CDT R/O COVID19 11/27/2021 11/27/2021 11/27/2021 7:23 PM ENGINEERING TECH R/O COVID19 03/29/2024 03/29/2024 03/29/2024 8:25 PM CDT documented as of this encounter Care Teams Truck Loader Relationship Specialty Start Date End Date Komal Taylor MD [address] [place] [address] PCP - General Family Practice 02/16/19 documented as of this encounter
--- OUTSIDE RECORDS SUMMARY | 2024-10-18 11:49 | XMS_ITS | Encounter Summary ---
Author Organization [facility] Address [address], [place] [address] Care Team Providers Care Supervisor Esters And Emulsifiers Name Role Phone Komal Taylor MD Primary Care Provider [phone] Reason for Visit * Reason Comments Supportive Care Encounter Details Date Type Department Care Team (Late st Contact Info) Description 10/12/2024 Telephone [facility] at [address] [address] Stephanie Rhodes LGSW [address] [place] [address] Supportive Care Social History Tobacco Use Types Packs/Day Years [...] as of this encounter Nursing Notes * Stephanie Rhodes LGSW - 10/12/2024 4:38 PM CST Pt's insurance is not in network with [facility]. Pt will need to switch insurance plansor transfer care to a new provider. SILVESTRE called pt utilizing a senior occupational therapist to discuss options.No answer and no option to leave a vmail. SW to attempt to reach pt at a different time. KELI Perry 10/12/2024, 4:39 PM GENERATOR OPERATOR documented in this encounter Plan of Treatment Upcoming Encounters Date Type Department Care Team (Late st Contact Info) Description 10/19/2024 2:00 PM GAS GENERATOR OPERATOR Appointment [address] [address] 10/19/2024 2:30 PM GAS GENERATOR OPERATOR Appointment [facility] at [address] [address] Junie Levi, PA-C [address] [place] [address] documented as of this encounter Visit Diagnoses Diagnosis Psychosocial stressors- Primary Other psychological or physical stress, not elsewhere classified documented in this encounter Care Teams Supervisor Esters And Emulsifiers Relationship Specialty Start Date End Date Komal Taylor MD [address] [place] [address] PCP - General Family Practice 02/16/19 documented as of this encounter
--- OUTSIDE RECORDS SUMMARY | 2024-10-18 11:49 | XMS_ITS | Encounter Summary ---
Author Organization [facility] Address [address], [place] [address] Care Team Providers Care Production Gear Cutter Name Role Phone Komal Taylor MD Primary Care Provider [phone] Encounter Details Date Type Department Care Team (Latest Contact Info) Description 10/12/2007 Consent for Procedure/Treatm ent Gastroenterology Procedures at [address] [address] Mauro Churchill Jr., MD [facility] Informed Consent Social History Tobacco Use Types Packs/Day Years Used Date Smoking Tobacco: Never Alcohol Use Standard Drinks/Week Comments No 0 (1 standard drink = 0.6 oz pur e alcohol) Sex and Gender Information Value Date Recorded Sex Assigned at Not on file Gender Identity Not on file Sexual Orientation Not on file documented as of this encounter Progress Notes * Mauro Churchill Jr. - 10/12/2007 12:00 AM MACHINE HOOP MAKER INE HOOP MAKER documented in this encounter Plan of Treatment Upcoming Encounters Date Type Department Care Team (Late st Contact Info) Description 10/19/2024 2:00 PM MACHINE HOOP MAKER Appointment [address] [address] 10/19/2024 2:30 PM MACHINE HOOP MAKER Appointment [facility] at [address] [address] Junie Levi PA-C [address] [place] [address] documented as of this encounter Visit Diagnoses Not on filedocumented in this encounter Additional Health Concerns Infection Onset Date Last Indicated Resolved Time R/O COVID19 05/28/2020 05/28/2020 05/30/2020 4:24 AM CDT R/O COVID19 11/27/2021 11/27/2021 11/27/2021 7:23 PM MACHINE HOOP MAKER R/O COVID19 03/29/2024 03/29/2024 03/29/2024 8:25 PM CDT documented as of this encounter Care Teams Production Gear Cutter Relationship Specialty Start Date End Date Komal Taylor MD [address] [place] [address] PCP - General Family Practice 02/16/19 documented as of this encounter
--- OUTSIDE RECORDS SUMMARY | 2024-10-18 11:49 | XMS_ITS | Encounter Summary ---
Author Organization [facility] Address [address] [address] Care Team Providers Care Hospice Office Coordinator Name Role Phone Komal Taylor MD Primary Care Provider [phone] Encounter Details Date Type Department Care Team (Late st Contact Info) Description 01/29/2019 Correspondence [facility] Radiology [address] [place] [address] Radiology, Provider MRI SAFETY SHEET AND COMPATIBILITY [...] st Contact Info) Description 10/19/2024 2:00 PM CREDIT RESOLUTION REPRESENTATIVE Appointment [address] [address] 10/19/2024 2:30 PM CREDIT RESOLUTION REPRESENTATIVE Appointment [facility] at [address] [address] Junie Levi PABeeC [address] [place] [address] documented as of this encounter Visit Diagnoses Not on filedocumented in this encounter Additional Health Concerns Infection Onset Date Last Indicated Resolved Time R/O COVID19 05/28/2020 05/28/2020 05/30/2020 4:24 AM CDT R/O COVID19 11/27/2021 11/27/202111/2711/27/2021 7:23 PM CREDIT RESOLUTION REPRESENTATIVE R/O COVID19 03/29/2024 03/29/2024 03/29/2024 8:25 PM CDT documented as of this encounter Care Teams Hospice Office Coordinator Relationship Specialty Start Date End Date Komal Taylor MD [address] [place] [address] PCP - General Family Practice 02/16/19 documented as of this encounter
--- OUTSIDE RECORDS SUMMARY | 2024-10-18 11:49 | XMS_ITS ---
Author Organization [facility] Address [address], [place] [address] Care Team Providers Care Cutter Helper Name Role Phone Komal Taylor MD Primary Care Provider [phone] Active Problems Problem Noted Date Diagnosed Date Endometriosis determined by laparoscopy 08/27/20 S/P partial resection of colon 08/27/2022 Gastroesophageal reflux disease without esophagi tis 06/17/2022 Hypothyroidism 06/17/2022 Diverticulitis of large inte chirag with perforation without abscess or bleeding 06/07/2022 Overview (06/07/2022): Added automatically from request for surgery [id number] Diverticulitis 11/30/2021 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, estrogen receptor negative 08/31/2018 Cancer Staging:Clinical:Stage IIB(cT2, cN1, cM0, G2, ER-, NC+, HER2-) - Unsigned Hypertension 11/01/2013 Screening for malignant neoplasm of cervix 10/04 Overview (08/28/2015): 08/2013 nilm pap Plan: Screening in 3 years Epic Current Oncology Plans ELECTROLYTE REPLACEMENT (POTASSIUM/MAGNESIUM/CALCIUM)* Plan Start Date:01/24/2020 Plan Provider:Shannan Reich PA-C Linked Problems Malignant neoplasm of upper- outer quadrant of right breast in female, estrogen receptor negative (HRC) Treatment Medications ALBUterol sulfate HFAaltepla se (CATHFLO ACTIVASE)calcium gluconate IVPBdiphenhydrAMINE (BENADRYL)EPINEPHrinefamotidine (PEPCID)heparinheparin PF (Pork)magnesium sulfatemagnesium sulfate in watermagnesium sulfate-dextrose 5%methylPREDNISolone sodium succinate PF (SOLU-medrol)potassium bicarbonate- citric acid (EFFER-K)potassium chloridesodium chloride 0.9 %sodium chloride 0.9% Past Plans ONCOLOGY TREATMENT Plan Name Start Date Discontinue Date Treatment Medications Discontinue Reason Plan Provider Cycles Study [id number]. pembrolizumab. supplied by study 020 02/08/2024 ALBUterol sulfate HFAalteplase (CATHFLO ACTIVASE)diphenhydrAMI NE (BENADRYL)EPINEPHrineE PINEPHrine (EPIPEN)famotidine (PEPCID)heparinheparin (porcine) 100 UNIT/MLheparin PF (Pork)investigational pembrolizumab infusion (KEYTRUDA)methylPREDNI Solone sodium succinate (SOLU-medrol)methylPRE DNISolone sodium succinate PF (SOLU-medrol)sodium chloride 0.9 %sodium chloride 0.9% Other Ivy Rooney MD 13 of 14 cycles started PACLItaxel (28D:1,8,15,22) x 3 cycles 201712/11/2019 ALBUterol sulfate HFAalteplase (CATHFLO ACTIVASE)dexAMETHasone (DECADRON)dexAMETHason e (DECADRON) IVPBdiphenhydrAMINE (BENADRYL)EPINEPHrine (EPIPEN)famotidine (PEPCID)heparinheparin (porcine) 100 UNIT/MLLORazepam (ATIVAN)methylPREDNISo lone sodium succinate (SOLU-medrol)PACLitaxe l (TAXOL) in 250 mL IVPBprochlorperazine (COMPAZINE)sodium chloride 0.9 %sodium chloride 0.9% Therapy Complete Ivy Rooney MD 3 of 3 cycles started DOXOrubicin CYCLOPHOSPHAMIDE (14D:1) 201711/08/2018 ALBUterol sulfate HFAalteplase (CATHFLO ACTIVASE)cycloPHOSpham mauricio (CYTOXAN) infusiondexAMETHasone (DECADRON)dexAMETHason e-ondansetron IVPBdiphenhydrAMINE (BENADRYL)DOXOrubicin (ADRIAMYCIN)EPINEPHrin e (EPIPEN)famotidine (PEPCID)fosaprepitant (EMEND) 150 mg 250 mL IVPB ADSheparinheparin (porcine) 100 UNIT/MLLORazepam (ATIVAN)methylPREDNISo lone sodium succinate (SOLU-medrol)ondansetr on (ZOFRAN)pegfilgrastim (NEULASTA)prochlorpera zine (COMPAZINE)sodium chloride 0.9 %sodium chloride 0.9% Therapy Complete Ivy Rooney MD 4 of 4 cycles started SUPPORTIVE CARE Plan Name Start Date Discontinue Date Treatment Medications Discontinue Reason Plan Provider Cycles HP SUPPORTIVE ELECTROLYTE REPLACEMENT PROTOCOL FOR HEME/ONC 018 01/24/2020 alteplase (CATHFLO ACTIVASE)heparinhep marita (porcine) 100 UNIT/MLmagnesiummag nesium sulfate-dextrose 5%potassium chloridepotassium chloride 20 MEQ/50MLsodium chloride 0.9 %sodium chloride 0.9% Other Ivy Rooney MD 1 of 1 cycle started Radiation Treatments * No radiation treatments are documented for this patient in [facility]. Treatments may have been administered in another system. 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
--- OUTSIDE RECORDS SUMMARY | 2024-10-18 11:49 | XMS_ITS | Clinical Summary ---
Author Organization [facility] Address [address], [place] [address] Care Team Providers Care Cutter And Paster Press Clippings Name Role Phone Komal Taylor MD Primary Care Provider [phone] Source Comments You are receiving this document as you are listed as the primary care provider,follow-up provider, or the patient has been referred to you for consultation.This is in compliance with the Medicare and[facility] E[facility] Incentive [facility],which states Providers who transition their patient to another setting of careor provider of care or refers their patient to another provider of care shouldprovide summary care record for each transition of care or referral. [facility] Allergies No known active allergies Medications Medication Sig Dispensed Refills Start Date End Date Status hydrochlorothiazi de (AKA HYDRODIURIL) 25 MG tablet Take 1 Tab by mouth daily. 30 Tab 11 01/09/2014 Active Additional Information Patient not taking.Reported on 02/24/2023 loratadine (CLARITIN) 10 MG tabletIndications :Seasonal allergies,Post-na bryn drip Take 1 Tablet by mouth daily. 30 Tablet 3 05/28/2020 Active Additional Information Patient not taking.Reported on 02/24/2023 ibuprofen (MOTRIN) 400 MG tablet Take 1 Tablet by mouth every 6 hours as needed for Pain. 30 Tablet 11/13/2020 Active Additional Information Patient not taking.Reported on 02/24/2023 acetaminophen (TYLENOL) 500 MG tablet Take 2 Tablets (1,000 mg) by mouth every 6 hours. Maximum acetaminophen dose is 4000 mg in 24 hours 100 Tablet 11 08/27/2022 Active Additional Information Patient not taking.Reported on 02/24/2023 cyclobenzaprine (FLEXERIL) 5 MG tablet Take 1 Tablet (5 mg) by mouth three times a day as needed. 15 Tablet 08/27/2022 Active Additional Information Patient not taking.Reported on 02/24/2023 oxyCODONE (ROXICODONE) 5 MG immediate release tablet Take 1-2 Tablets (5-10 mg) by mouth every 4 hours as needed for moderate pain. 10 Tablet 08/27/2022 Active Additional Information Patient not taking.Reported on 02/24/2023 clobetasol (TEMOVATE) 0.05 % ointment Apply a thin layer to affected area nightly x4 weeks, then every other night x4 weeks, then 2-3 times per week. 45 g 1 09/08/2022 Active Additional Information Patient not taking.Reported on 02/24/2023 omeprazole (PRILOSEC) 20 MG capsule TAKE 1 CAPSULE BY MOUTH DAILY 1 HOUR BEFORE BREAKFAST 90 Capsule 2 08/04/2023 Active amLODIPine (NORVASC) 10 MG tablet Take 1 Tablet (10 mg) by mouth daily. 30 Tablet 03/29/2024 Active levothyroxine (SYNTHROID) 125 MCG tabletIndications :Malignant neoplasm of upper-outer quadrant of right breast in female, estrogen receptor negative (HRC) Take 1 Tablet (125 mcg) by mouth daily. 30 Tablet 03/29/2024 Active benzonatate (TESSALON) 100 MG capsule Take 1 Capsule (100 mg) by mouth three times a day as needed for Cough. 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, estrogen receptor negative 08/31/2018 Cancer Staging:Clinical:Stage IIB(cT2, cN1, cM0, G2, ER-, IL+, HER2-) - Unsigned Hypertension 11/01/2013 Screening for malignant neoplasm of cervix 10/04 Overview (08/28/2015): 08/2013 nilm pap Plan: Screening in 3 years Epic Resolved Problems Problem Noted Date Diagnosed Date Resolved Date Secondary lymphedema 07/19/2019 019 Right lower quadrant abdominal pain 08/31/2018 08/18/2022 Encounters Date Type Department Care Team Description 10/12/2024 Telephone [facility] at [address] [address] Stephanie Rhodes LGSW Supportive Care 10/11/2024 Telephone [facility] [address] [place] [id number] Junie Levi, PAShae LAB TESTS, NOS from Last 3 Months Immunizations Name Administration Dates Next Due DT Ped 11/28/2002 Flu Vac (3+ yrs) 09/07/2012,09/07/2011 Fluzone Qiv Multidose Vial 0 .25 (6-35 Mos) 10/26/2013 Influenza IIV4 (Quadrivalent ) 0.5mL ([id number]) 08/18/2022,11/30/2021,11/29/2019,2012 Influenza, Unspecified Formulation 07/29,10/26/2013,09/08/2010,2008 Moderna Monovalent 12+ 03/03/2021,02/03/2021 Pfizer Bivalent 12+ 08/18/2022 Pfizer Monovalent 12+ Purple Top 11/08/2021 Td (7+ yrs) 11/28/2002 Tdap 01/09/2014 Tetanus Toxoid, Unspecified Formulation 01/09/2014 Family History Medical History Relation Name Comments Cancer, Brain Cousin paternal Cancer, Lung Maternal Aunt Cancer, Prostate Maternal Uncle metastati c Cancer, Breast Negative Family History Cancer, Colon Negative Family History Cancer, Ovary Negative Family History Cancer, Pancreatic Negative Family History Relation Name Status Comments Father Mother Brother 1 Alive Brother 2 Alive Brother 3 Alive Cousin paternal Maternal Aunt Maternal Uncle Sister 1 Alive Sister 2 Alive Sister 3 Alive Sister 4 Alive Sister 5 Alive Social History Tobacco Use Types Packs/Day Years [...] Sign Reading Time Taken Comments Blood Pressure 155/88 04/12/2024 1:18 PM CDT Pulse 80 04/12/2024 1:18 PM CDT Temperature 36.7 C (98 F) 04/12/2024 1:18 PM CDT Respiratory Rate 16 04/12/2024 1:18 PM CDT Oxygen Saturation 96% 04/12/2024 1:18 PM CDT Inhaled Oxygen Concentration - - Weight 74.8 kg (165 lb) 04/12/2024 1:18 PM CDT Height 149.9 cm (4' 11) 08/30/2023 1:00 PM CDT Body Mass Index 33.33 08/30/2023 1:00 PM CDT Plan of Treatment Upcoming Encounters Date Type Department Care Team (Late st Contact Info) Description 10/19/2024 2:00 PM ENTRY LEVEL TRUCK DRIVER Appointment [address] [address] 10/19/2024 2:30 PM ENTRY LEVEL TRUCK DRIVER Appointment [facility] at [address] [address] Junie Levi, PABeeC [address] [place] [phone] Health Maintenance Due Date Last Done Comments Adult Preventive Visit 1984 HepB (1) 1985 Cervical Cancer Screening Due 09/14/2013 09/13/2013 Zoster/Shingles (1 of 2) 2016 DTaP/Tdap/Td (4 - Tdap) 01/09/2024 01/09/20 14, 11/28/2002, 11/28/2002 COVID-19 Vaccine ( season) 2024 08/18/2022, 11/08/2021, 03/03/2021, Additional history exists Influenza (#1) 2024 08/18/2022, 01/2022, 11/29/2019, Additional history exists Mammogram 04/13/2025 04/13/2024, 04/2022, 09/08/2021, Additional history exists Cholesterol 08/18/2027 08/18/2022, 11/05/2013 Colonoscopy 06/04/2032 06/04/2022 HIV Screening (Preventive Services) Completed 08/18/2022 Hep C Screening (Preventive Services) Completed 08/18/2022 HepA Aged Out No longer eligi ble based on patient's age to complete this topic Hib Aged Out No longer eligi ble based on patient's age to complete this topic IPV (Polio) Aged Out No longer eligi ble based on patient's age to complete this topic RSV Aged Out No longer eligi ble based on patient's age to complete this topic MCV4 Aged Out No longer eligi ble based on patient's age to complete this topic Pneumococcal Aged Out No longer eligi ble based on patient's age to complete this topic Procedures Procedure Name Priority Date/Time Associated Diagnosis Comments MM MAMMOGRAM SCREENING BILAT W 3D MOSES W CAD Routine 04/13/2024 3:41 PM CDT Encounter for screening mammogram for malignant neoplasm of breast HIV 1/2 AG/AB 4TH GEN Routine 08/18/2022 9:41 AM CDT Screening for HIV (human immunodeficiency virus) HEPATITIS C ANTIBODY, WITH REFLEX Routine 08/18/2022 9:41 AM CDT Encounter for hepatitis C screening test for low risk patient LIPID PANEL & DIRECT LDL (IF NEEDED) Routine 08/18/2022 9:41 AM CDT Lipid screening ENDOSCOPY, COLON, SCREENING/DIAGNOS TIC Routine 06/04/2022 9:45 AM CDT Screen for colon cancer PAP TEST, ROUTINE Routine 09/13/2013 6:1 9 PM CDT Pap smear for cervical cancer screening from Last 3 Months or Most Recently Relevant to Health Maintenance Results * MM Mammogram Screening Bilat W 3D Moses W CAD (04/13/2024 3:41 PM CDT) Anatomical Region Laterality Modality Breast Bilateral Mammography Impressions 04/13/2024 4:07 PM CDT : ACR BI-RADS Category 1: Negative RECOMMENDATION: Follow Up Imaging in 12 months - Bilateral The results and recommendations of this examination will be communicated to the patient. Narrative 04/13/2024 4:07 PM CDT MM MAMMOGRAM SCREENING BILAT W 3D MOSES W CAD performed on 04/13/24 Compared to: 11/02/2022 YMM Mammogram Diag Bilat W 3D Moses, 09/08/2021 MM Mammogram Diag Bilat W 3D Moses, and 09/01/2020 MM Mammogram Diag Bilat W 3D Moses FINDINGS: Bilateral screening mammogram was performed with the assistance of Computer-Aided Detection and breast tomosynthesis. The breasts are heterogeneously dense, which may obscure small masses. There is no radiographic evidence of malignancy. Ivy Rooney MD [facility] * HIV 1/2 Ag/Ab 4th Generation (08/18/2022 9:41 AM CDT) HIV 1/2 Antigen/Antib barak (4th generation) Negative (Non Reactive) Negative (Non Reactive) 08/18/2022 2:29 PM CDT [facility] Comment:HIV-1 p24 Antigen an d HIV-1/HIV-2 Antibody not detected Blood Venipuncture / Unknown 08/18/2022 9:41 AM CDT 08/18/2022 9:41 AM CDT Heriberto Otero MD LAB_1 [facility] [address] [place] [address], [facility] * Lipid Panel - LDLD If Trig High (08/18/2022 9:41 AM CDT) Cholesterol 188 0 - 199 mg/dL 08/18/2022 10:58 AM CDT [facility] Triglyceride 114 <=149 mg/dL 08/18/2022 10:58 AM CDT [facility] HDL Cholesterol 50 >=40 mg/dL 2 10:58 AM CDT [place] [address] [facility] LDL, Calculated 115 <130 mg/dL 2 10:58 AM CDT [facility] Non HDL Chol, Calculated 138 <=159 mg/dL 08/18/2022 10:58 AM CDT [facility] Cholesterol/HDL Ratio 3.8 08/18/2022 10:58 AM CDT [place] [address] [facility] Hours Fasting 2 08/18/2022 10:58 AM CDT [facility] Blood Venipuncture / Unknown 08/18/2022 9:41 AM CDT 08/18/2022 9:41 AM CDT Heriberto Otero MD LAB_1 Performing Organization Address [facility] de Phone Number [facility] [address] [place] [address] [phone] * Hepatitis C Antibody, with Reflex (08/18/2022 9:41 AM CDT) Hepatitis C Antibody Negative (Non Reactive) Negative (Non Reactive) 08/18/2022 2:29 PM CDT [facility] Comment:Antibodies to HCV no t detected. Does not exclude the possiblity of exposure to HCV. Blood Venipuncture / Unknown 08/18/2022 9:41 AM CDT 08/18/2022 9:41 AM CDT Heriberto Otero MD LAB_1 Performing Organization Address City/[facility] Co de Phone Number [facility] [address] [place] [address] * Endoscopy, Colon, Screening/Diagnostic (06/04/2022 9:45 AM CDT) Anatomical Region Laterality Modality Other 06/04/2022 9:45 AM CDT Narrative 06/04/2022 9:45 AM CDT Patient Name: Shireen Lawson Procedure Date: 06/04/2022 9:45 AM Date of : 1965 Admit Type: Outpatient Age: 56 Gender: Female Note Status: Finalized Attending MD: Gavin Nassar MD Procedure: Colonoscopy Indications: Screening for colorectal malignant neoplasm, This is the patient's first colonoscopy, Follow up of diverticulitis Providers: Gavin Nassar MD, Boby Barker Referring MD: Medicines: Fentanyl 100 micrograms IV, Midazolam 2 mg IV Complications: No immediate complications. Procedure: After I obtained informed consent, the scope was passed under direct vision. Throughout the procedure, the patient's blood pressure, pulse, and oxygen saturations were monitored continuously. The [id number] was introduced through the anus and advanced to the terminal ileum, with identification of the appendiceal orifice and IC valve. The colonoscopy was performed without difficulty. The patient tolerated the procedure well. The quality of the bowel preparation was excellent. Findings: The perianal and digital rectal examinations were normal. A few small-mouthed diverticula were found in the sigmoid colon. Mild inflammatory changes present but no mass lesions. No intraluminal narrowing. The terminal ileum appeared normal. The retroflexed view of the distal rectum was normal and showed no anal or rectal abnormalities. The exam was otherwise without abnormality. Moderate Sedation: Moderate (conscious) sedation was administered by the endoscopy nurse and supervised by the endoscopist. The following parameters were monitored: oxygen saturation, heart rate, blood pressure, and response to care. Total physician intraservice time was 24 minutes. Impression: - Diverticulosis in the sigmoid colon. - The examined portion of the ileum was normal. - The examination was otherwise normal. - No specimens collected. Recommendation: - Return to my office to discuss surgery for diverticulitis. - High fiber diet. - Repeat colonoscopy in 10 years for screening purposes. Procedure Code(s): --- Professional --- G0121, Colorectal cancer screening; colonoscopy on individual not meeting criteria for high risk 88262, Moderate sedation; each additional 15 minutes intraservice time G0500, Moderate sedation services provided by the same physician or other qualified health wound care technician performing a gastrointestinal endoscopic service that sedation supports, requiring the presence of an independent trained observer to assist in the monitoring of the patient's level of consciousness and physiological status; initial 15 minutes of intra-service time; patient age 5 years or older (additional time may be reported with [address]694, as appropriate) Diagnosis Code(s): --- Professional --- Z12.11, Encounter for screening for malignant neoplasm of colon K57.30, Diverticulosis of large intestine without perforation or abscess without bleeding CPT copyright 2020 [employer]. All rights reserved. The codes documented in this report are preliminary and upon fabric inspector review may be revised to meet current compliance requirements. Gavin Nassar MD 06/04/2022 10:45:58 AM This document has been electronically signed. Number of Addenda: 0 Note Initiated On: 06/04/2022 9:45 AM Endoscopy Report Procedure Note Gavin Nassar MD - 06/04/2022 Patient Name: Shireen Lawson Procedure Date: 06/04/2022 9:45 AM Date of : 1965 Admit Type: Outpatient Age: 56 Gender: Female Note Status: Finalized Attending MD: Gavin Nassar MD Procedure: Colonoscopy Indications: Screening for colorectal malignant neoplasm, This is the patient's first colonoscopy, Follow up of diverticulitis Providers: Gavin Nassar MD, Boby Barker Referring MD: Medicines: Fentanyl 100 micrograms IV, Midazolam 2 mg IV Complications: No immediate complications. Procedure: After I obtained informed consent, the scope was passed under direct vision. Throughout the procedure, the patient's blood pressure, pulse, and oxygen saturations were monitored continuously. The [id number] was introduced through the anus and advanced to the terminal ileum, with identification of the appendiceal orifice and IC valve. The colonoscopy was performed without difficulty. The patient tolerated the procedure well. The quality of the bowel preparation was excellent. Findings: The perianal and digital rectal examinations were normal. A few small-mouthed diverticula were found in the sigmoid colon. Mild inflammatory changes present but no mass lesions. No intraluminal narrowing. The terminal ileum appeared normal. The retroflexed view of the distal rectum was normal and showed no anal or rectal abnormalities. The exam was otherwise without abnormality. Moderate Sedation: Moderate (conscious) sedation was administered by the endoscopy nurse and supervised by the endoscopist. The following parameters were monitored: oxygen saturation, heart rate, blood pressure, and response to care. Total physician intraservice time was 24 minutes. Impression: - Diverticulosis in the sigmoid colon. - The examined portion of the ileum was normal. - The examination was otherwise normal. - No specimens collected. Recommendation: - Return to my office to discuss surgery for diverticulitis. - High fiber diet. - Repeat colonoscopy in 10 years for screening purposes. Procedure Code(s): --- Professional --- G0121, Colorectal cancer screening; colonoscopy on individual not meeting criteria for high risk [address], Moderate sedation; each additional 15 minutes intraservice time G0500, Moderate sedation services provided by the same physician or other qualified health wound care technician performing a gastrointestinal endoscopic service that sedation supports, requiring the presence of an independent trained observer to assist in the monitoring of the patient's level of consciousness and physiological status; initial 15 minutes of intra-service time; patient age 5 years or older (additional time may be reported with 94539, as appropriate) Diagnosis Code(s): --- Professional --- Z12.11, Encounter for screening for malignant neoplasm of colon K57.30, Diverticulosis of large intestine without perforation or abscess without bleeding CPT copyright 2020 [employer]. All rights reserved. The codes documented in this report are preliminary and upon fabric inspector review may be revised to meet current compliance requirements. Gavin Nassar MD 06/04/2022 10:45:58 AM This document has been electronically signed. Number of Addenda: 0 Note Initiated On: 06/04/2022 9:45 AM Endoscopy Report Gavin Nassar MD ET GI PROCEDURE [facility] * PAP TEST, ROUTINE (09/13/2013 6:19 PM CDT) Cytology (NOTE) Warp Scouring Vat Tender Cytology Report Patient Name: SHIREEN BARRETT Taken: 09/13/2013 Received: 09/17/2013 Reported: 09/27/2013 Physician(s): ELENA CROOK ([id number]) Source of Specimen Pap Test, Routine Cervical/Endocervi ezra: Specimen Adequacy Satisfactory for evaluation. Endocervical component present. Final Cytologic Interpretation/Res ult NEGATIVE FOR INTRAEPITHELIAL LESION OR MALIGNANCY (NILM) Other Cytologic Findings Bacteria morphologically consistent with Actinomyces spp. Electronically Signed Out By ALISA Mike (ASCP) ALISA Mike (ASCP) Pap Smear History Date of Last Menstrual Period: 08/28/2013 Microscopic Description Microscopic examination is performed. [facility] Department of Pathology [address] [place] [address] [facility] 09/13/2013 6:19 PM CDT 09/17/2013 1:08 PM CDT Elena Crook MD LAB_1 [facility] [phone] from Last 3 Months or Most Recently Relevant to Health Maintenance Advance Directives * Full Code (Latest Code Status on File) Date Activated Date Inactivated Comments 08/26/2022 4:10 PM 08/28/2022 3:42 PM * Full Code Date Activated Date Inactivated Comments 11/28/2021 12:41 AM 11/30/2021 7:24 PM * Full Code Date Activated Date Inactivated Comments 11/06/2013 1:03 PM 11/07/2013 6:19 AM Care Teams Cutter And Paster Press Clippings Relationship Specialty Start Date End Date Komal Taylor MD [address] [place] [address] PCP - General Family Practice 02/16/19
--- OUTSIDE RECORDS SUMMARY | 2024-10-18 11:49 | XMS_ITS | Encounter Summary ---
Author Organization [facility] Address [address] [address] Care Team Providers Care Mine Patrol Name Role Phone Komal Taylor MD Primary Care Provider [phone] Encounter Details Date Type Department Care Team (Late Contact Info) Description 01/25/2019 Consent for Procedure/Treatme nt [facility] at [address] [address] Christy Ro [address] [place] [id number] GENE DX - TEST REQUISITION FORM Social History Tobacco Use Types Packs/Day [...] st Contact Info) Description 10/19/2024 2:00 PM MEDICAL ASSISTANT DERMATOLOGY Appointment [address] [address] 10/19/2024 2:30 PM MEDICAL ASSISTANT DERMATOLOGY Appointment [facility] at [address] [address] Junie Levi PA-C [address] [place] [address] documented as of this encounter Visit Diagnoses Not on filedocumented in this encounter Additional Health Concerns Infection Onset Date Last Indicated Resolved Time R/O COVID19 05/28/2020 05/28/2020 05/30/2020 4:24 AM CDT R/O COVID19 11/27/2021 11/27/2021 11/27/2021 7:23 PM MEDICAL ASSISTANT DERMATOLOGY R/O COVID19 03/29/2024 03/29/2024 03/29/2024 8:25 PM CDT documented as of this encounter Care Teams Mine Patrol Relationship Specialty Start Date End Date Komal Taylor MD [address] [place] [address] PCP - General Family Practice 02/16/19 documented as of this encounter
--- OUTSIDE RECORDS SUMMARY | 2024-10-18 11:49 | XMS_ITS | Encounter Summary ---
Author Organization [facility] Address [address], [place] [address] Care Team Providers Care Petrographer Name Role Phone Komal Taylor MD Primary Care Provider [phone] Encounter Details Date Type Department Care Team (Late st Contact Info) Description 11/08/2019 Correspondence [facility] at [address] [address] Cancer Center, Provider CLINICAL SONSENT TRIAL (SPINISH) Social History Tobacco Use Types Packs/Day Years [...] st Contact Info) Description 10/19/2024 2:00 PM EXCHANGE SPECIALIST Appointment [address] [address] 10/19/2024 2:30 PM EXCHANGE SPECIALIST Appointment [facility] at [address] [address] Junie Levi PA-C [address] [place] [phone] documented as of this encounter Visit Diagnoses Not on filedocumented in this encounter Additional Health Concerns Infection Onset Date Last Indicated Resolved Time R/O COVID19 05/28/2020 05/28/2020 05/30/2020 4:24 AM CDT R/O COVID19 11/27/2021 11/27/2021 11/27/2021 7:23 PM EXCHANGE SPECIALIST R/O COVID19 03/29/2024 03/29/2024 03/29/2024 8:25 PM CDT documented as of this encounter Care Teams Petrographer Relationship Specialty Start Date End Date Komal Taylor MD [address] [place] [address] PCP - General Family Practice 02/16/19 documented as of this encounter
== END 2024-10-11 17:21 | disposition home or self-care (01) | DRG 743 ==
LOC: OR 14:46 → MEDSURG 10-11 12:20
PROVIDERS: Admitting Provider Obstetrics & Gynecology; PCP Family Medicine; Visit Provider Obstetrics & Gynecology
PROC: 0TJB8ZZ Inspection of Bladder, Via Natural or Artificial Opening Endoscopic (ICD-10-PCS; CPT 57260; principal; 2024-10-10 07:15)
DX: N81.3 Complete uterovaginal prolapse (principal); N73.6 Female pelvic peritoneal adhesions (postinfective); N93.9 Abnormal uterine and vaginal bleeding, unspecified; G89.18 Other acute postprocedural pain; I10 Essential (primary) hypertension; K21.9 Gastro-esophageal reflux disease without esophagitis; E03.9 Hypothyroidism, unspecified
CPT/HCPCS: 00840; 36415; 64488; 76942; 82565; 85018; 86850; 86900; 86901; 88307; T1013; A9270; C9290; J0330; J0665; J0690; J1100; J1171; J1630; J1885; J2250; J2274; J2371; J2405; J2704; J3010; J3490; J7120

== ENCOUNTER 2025-03-14 09:40 | Outpatient (CLI) | payer MEDICAID, SELFPAY ==
--- NOTE | 2025-03-14 09:45 | CRLHL7_ITS ---
For Patients: As a result of the Century Cures Act, medical imaging exams and procedure reports are released immediately into your electronic medical record. You may view this report before your referring provider. If you have questions, please contact your health care provider. INDICATION: BILATERAL SCREENING MAMMOGRAM, ASYMPTOMATIC 59 Y/O FEMALE COMPARISON: 04/13/24, 11/02/22, 09/08/21 TECHNIQUE: CC and MLO views were obtained. These mammographic images have been obtained using full-field digital technique. These mammographic images were interpreted with the benefit of computer aided detection and tomosynthesis. BREAST COMPOSITION: There are scattered areas of fibroglandular density. FINDINGS: No suspicious findings. ASSESSMENT: BI-RADS 2 Benign RECOMMENDATION: Annual screening mammogram. A lay language report of this examination will be provided to the patient. Dictated by: Gavin Anne MD @ 03/22/2025 12:59:37 (Electronically Signed)
== END 2025-03-14 09:41 | disposition home or self-care (01) ==
LOC: MAMMO 09:41
PROVIDERS: PCP Family Medicine; Visit Provider Family Medicine
DX: Z12.31 Encounter for screening mammogram for malignant neoplasm of breast (principal)
CPT/HCPCS: 77063; 77067; T1013

== ENCOUNTER 2025-07-15 08:00 | Outpatient (RCR) | payer MEDICAID, SELFPAY | END 2025-08-24 23:59 | disposition home or self-care (01) | LOC: CCIC 08:00 | PROVIDERS: PCP Family Medicine; Visit Provider Physician Assistant | DX: Z08 Encounter for follow-up examination after completed treatment for malignant neoplasm (principal); Z85.3 Personal history of malignant neoplasm of breast; L98.9 Disorder of the skin and subcutaneous tissue, unspecified; I10 Essential (primary) hypertension; E03.9 Hypothyroidism, unspecified | CPT/HCPCS: 99202; 99205; 99214; G0463; T1013 ==

== ENCOUNTER 2025-09-13 14:47 | Outpatient (CLI) | payer MEDICAID, SELFPAY | END 2025-09-13 14:48 | disposition home or self-care (01) | PROVIDERS: PCP Family Medicine; Visit Provider Family Medicine | DX: Z00.00 Encounter for general adult medical examination without abnormal findings (principal); E03.9 Hypothyroidism, unspecified; I10 Essential (primary) hypertension | CPT/HCPCS: 80053; 80061; 84443; 86803 ==

== ENCOUNTER 2025-09-17 08:12 | Outpatient (CLI) | payer MEDICAID, SELFPAY ==
--- NOTE | 2025-09-17 08:15 | CRLHL7_ITS ---
For Patients: As a result of the 21st Century Cures Act, medical imaging exams and procedure reports are released immediately into your electronic medical record. You may view this report before your referring provider. If you have questions, please contact your health care provider. BILATERAL BREAST MRI WITHOUT AND WITH GADOLINIUM CLINICAL HISTORY: Personal history of RIGHT breast cancer diagnosed in 2018 and treated with chemotherapy, lumpectomy and radiation therapy. INDICATION FOR BREAST MRI: High-risk screening breast MRI. COMPARISON STUDIES: Breast MRI 05/11/2023, 02/24/2022 and 09/06/2018. Mammograms 03/14/2025 and 04/13/2024. CONTRAST: 15 mL IV Dotarem. TECHNIQUE: The patient was positioned prone using a breast coil. Multiple imaging sequences were obtained using 1-1.5 mm thick slices with no gap. The image sequences include T2-weighted STIR in the axial plane, T1-weighted nonfat-saturated gradient echo in the axial plane, pre- and post-contrast T1-weighted FLASH 3D with fat suppression in the axial plane, and T1-weighted FLASH high resolution 3D with fat suppression in the sagittal plane. Image post-processing was performed on a [employer] workstation. Complex 3D rendering including maximum intensity projections (MIPS) and volumetric renderings were obtained to optimize visualization of the extent of pathology and relationship to the nipple, skin, and chest wall. This aids in determining feasibility of breast conservation surgery. Subtraction, multiplanar reconstruction, mean curve determination, and angiogenesis mapping were also performed. The study was technically adequate. FINDINGS: Amount of Fibroglandular Tissue: Scattered fibroglandular tissue. Breast Background Enhancement: Minimal. RIGHT Breast: There are expected posttreatment changes of the RIGHT breast including postsurgical changes in the upper-outer breast and mild diffuse skin thickening and skin and breast edema. There is no suspicious mass or non-mass enhancement. LEFT Breast: In the upper inner breast approximately 9 cm posterior to the nipple there is a 0.5 x 0.4 x 0.3 cm oval, circumscribed mass unchanged on MRI dating back to 2018 and benign. There is no suspicious mass or non-enhancement. Lymph Nodes: There are at least six abnormal appearing LEFT axillary lymph nodes which appear to have thickened cortices. This is new compared to the prior MRI. Postsurgical changes in the RIGHT axilla. No abnormal morphology axillary lymph nodes on the RIGHT. IMPRESSIONS AND RECOMMENDATIONS: 1. No MRI evidence of malignancy in either breast. 2. There are least six abnormal appearing LEFT axillary lymph nodes. LEFT axillary ultrasound and possible ultrasound-guided biopsy are recommended. 3. No abnormal morphology lymph nodes on the RIGHT. BI-RADS Category 4: Suspicious Dictated by Madiha Bingham MD @ 09/17/2025 1:33:47 PM cody/Dictated by: Madiha Bingham MD @ 09/17/2025 1:34:00 PM (Electronically Signed)
== END 2025-09-17 08:13 | disposition home or self-care (01) ==
LOC: MRI 08:13
PROVIDERS: PCP Family Medicine; Visit Provider Physician Assistant
DX: Z12.39 Encounter for other screening for malignant neoplasm of breast (principal); N63.20 Unspecified lump in the left breast, unspecified quadrant; Z85.3 Personal history of malignant neoplasm of breast
CPT/HCPCS: 77049; C8908; C8937; T1013; A9575

== ENCOUNTER 2025-10-01 08:21 | Outpatient (CLI) | payer MEDICAID, SELFPAY ==
--- NOTE | 2025-10-01 08:15 | CRLHL7_ITS ---
For Patients: As a result of the Century Cures Act, medical imaging exams and procedure reports are released immediately into your electronic medical record. You may view this report before your referring provider. If you have questions, please contact your health care provider. ULTRASOUND-GUIDED LEFT AXILLARY LYMPH NODE BIOPSY AND CLIP PLACEMENT CLINICAL HISTORY: Abnormal left axillary lymph node COMPARISON STUDIES: Breast MRI 09/17/2025 TECHNIQUE: Real-time ultrasound with image documentation was used for targeting the left axillary lymph node lesion. Core biopsy specimens were obtained using an 18 gauge Temno biopsy needle. CONSENT and TIME OUT: The procedure, risks, and alternatives were explained to the patient and a consent was signed. [place] Protocol was followed including pre-procedure verification that relevant information/documentation was available, reviewed and properly matched to the patient; consent accurate and complete; and equipment and supplies available. Time Out was conducted just prior to starting procedure to verify the four required elements: patient identity, correct side/site marked (if applicable), procedure, relevant images/results properly labeled and displayed (if applicable). PROCEDURE: The patient was positioned supine on the ultrasound table. The left axillary skin was prepped with ChloraPrep. 8 cc 1 percent lidocaine used for local anesthesia. Core samples were obtained. Clip was placed. The specimens were placed in 10% formalin and sent to the pathology department. Pressure was held on the biopsy site until all bleeding subsided. The skin incision was closed with Steri-Strips. An ice pack was positioned over the biopsy site. Post-biopsy instructions were reviewed with the patient, and a written copy was given to her. LATERALITY: Left axilla LESION: Enlarged left axillary lymph node. SUSPICION FOR MALIGNANCY: Indeterminate NUMBER OF SAMPLES: 5 BIOPSY CLIP SHAPE: Oval PROXIMITY OF CLIP TO TARGET: Within the lesion IMPRESSION: Ultrasound-guided left axillary lymph node biopsy. When the pathology report is available, an addendum to this report will be made. ACR not applicable Dictated by Gavin Anne MD @ 10/01/2025 12:18:09 PM (Electronically Signed)
--- NOTE | 2025-10-01 08:15 | CRLHL7_ITS ---
For Patients: As a result of the Cures Act, medical imaging exams and procedure reports are released immediately into your electronic medical record. You may view this report before your referring provider. If you have questions, please contact your health care provider. CLINICAL HISTORY: : Enlarged left axillary lymph node COMPARISON: Breast MRI 09/17/2025 TECHNIQUE: Real-time ultrasound imaging of left axilla with imaging documentation. Scanning was performed by both the technologist and the radiologist. FINDINGS: Prominent left axillary lymph nodes are present measuring up to 2.5 x 1.0 x 1.3 cm with the cortex measuring up to 3.2 millimeters. IMPRESSION: Prominent left axillary lymph nodes. RECOMMENDATIONS: Ultrasound-guided core needle biopsy will be performed subsequently. Results and recommendations were discussed with the patient at the time of the exam. A lay language report of this examination will be provided to the patient. BI-RADS Category 4. Suspicious. Dictated by Gavin Anne MD @ 10/01/2025 12:19:44 PM (Electronically Signed)
== END 2025-10-01 08:22 | disposition home or self-care (01) ==
LOC: US 08:22
PROVIDERS: PCP Family Medicine; Visit Provider Clinical Nurse Specialist
DX: N63.20 Unspecified lump in the left breast, unspecified quadrant (principal); R92.8 Other abnormal and inconclusive findings on diagnostic imaging of breast; Z85.3 Personal history of malignant neoplasm of breast
CPT/HCPCS: 38505; 76882; 76942; T1013; A4648; A4649